=== PATIENT | male | born 1965 | race Hispanic/Latino ===

== ENCOUNTER 2017-09-17 18:39 | Inpatient (IN) | payer OTHER ==
[~2017-09-17] VITALS: Ht 175.3 cm; Wt 85.6 kg
[2017-09-17 18:59] LABS: APPEARANCE,URINE CLOUDY (CLEAR); BILIRUBIN,URINE MODERATE (NEGATIVE); COLOR,URINE RED (YELLOW); GLUCOSE, URINE (UA) >=1000 mg/dL (NEGATIVE); KETONES,URINE 5 mg/dL (NEGATIVE); LEUKOCYTE ESTERASE ,URINE LARGE (NEGATIVE); NITRATE,URINE POSITIVE (NEGATIVE); OCCULT BLOOD,URINE LARGE (NEGATIVE); PH,URINE 6.5 (5.0-8.0); PROTEIN,URINE >=300 (NEGATIVE)
[2017-09-17 19:09] LABS: BASOPHILS % (AUTO) 0.5 % (0.0-5.0); EOSINOPHILS % (AUTO) 0.7 % (0.0-8.0); HEMATOCRIT 43.4 % (42-54); LYMPHOCYTES % (AUTO) 7.7 % (21.0-51.0); MEAN CORPUSCULAR HEMOGLOBIN 30.9 pg (27.0-33.0); MEAN CORPUSCULAR HGB CONC 34.9 g/dL (32.0-36.0); MEAN CORPUSCULAR VOLUME 88.6 fL (79-99); MONOCYTES % (AUTO) 4.4 % (3.0-13.0); NEUTROPHILS % (AUTO) 86.7 % (40.0-77.0); PLATELET COUNT (AUTO) 245 K/uL (130-400); RED CELL DISTRIBUTION WIDTH 13.4 % (11.0-15.5); WHITE BLOOD COUNT (AUTO) 20.5 K/uL (4.8-10.8)
[2017-09-17 19:19] LABS: CREATININE 1.2 mg/dL (0.5-1.5); POTASSIUM 3.8 mmol/L (3.5-5.1)
[2017-09-17 19:20] LABS: RBC,URINE TNTC /HPF (0-1)
[2017-09-17 19:21] LABS: BACTERIA,URINE Rare /HPF (None Seen); SQUAMOUS EPITHELIAL CELL,UR Rare /HPF (0-2)
[2017-09-17] MEDS ORDERED: SODIUM CHLORIDE 0.9% 1000ML 1,000 ML IV ONE (19:21)
[2017-09-17] MEDS ORDERED: CEFTRIAXONE SODIUM 1 GM ONE (19:22)
[2017-09-17] MEDS ORDERED: ACETAMINOPHEN EXTRA STRENGTH 500 MG TABLET ONE (19:22)
[2017-09-17 19:24] LABS: ALBUMIN 3.9 g/dL (3.5-5.0); BILIRUBIN,TOTAL 0.6 mg/dL (0.2-1.0); TOTAL PROTEIN, SERUM 7.6 g/dL (6.0-8.3)
[2017-09-17] MEDS: SODIUM CHLORIDE 0.9% 1000ML 1,000 ML IV SCH (21:45)
[2017-09-17] MEDS ORDERED: LEVOFLOXACIN 500 MG/D5W 100 ML 100 ML ONE (21:53)
[2017-09-17] MEDS ORDERED: METFORMIN HCL 500 MG TABLET ONE (21:53)
[2017-09-17] MEDS ORDERED: LEVOFLOXACIN 500 MG/D5W 100 ML 100 ML IV SCH (22:00)
[2017-09-17] MEDS ORDERED: MAG HYDROX/AL HYDROX/SIMETH ES 30 ML SUSP UDCUP PO PRN (22:15)
[2017-09-17] MEDS ORDERED: GLUCAGON 1MG KIT 1 MG ML IM PRN (22:15)
[2017-09-17] MEDS ORDERED: ACETAMINOPHEN 325 MG TAB PO PRN ×2 (22:15)
[2017-09-17] MEDS ORDERED: POTASSIUM CHLORIDE 20 MEQ ERTAB PO PRN (22:15)
[2017-09-17] MEDS ORDERED: POTASSIUM CHLORIDE 20MEQ/100ML 100 ML IV PRN (22:15)
[2017-09-17] MEDS ORDERED: POTASSIUM CHLORIDE 10% ELIXIR 20 MEQ/15 ML UDCUP PO PRN (22:15)
[2017-09-17] MEDS ORDERED: DEXTROSE 50%-WATER 50 ML DISP.SYRIN IV PRN (22:15)
[2017-09-17] MEDS ORDERED: LIDOCAINE HCL-MPF 1% 2ML VIAL IVP PRN (22:15)
[2017-09-17] MEDS ORDERED: ONDANSETRON HCL MDV 20ML 2 MG/ML VIAL IV PRN (22:15)
[2017-09-17] MEDS ORDERED: LACTULOSE 20 GM/30 ML UDCUP PO PRN (22:15)
[2017-09-17] MEDS ORDERED: LOSA25TA21 PO (22:32)
[2017-09-17] MEDS ORDERED: GLIP5TAB11 PO (22:32)
[2017-09-17] MEDS ORDERED: ASPI-1181 PO (22:32)
[2017-09-17] MEDS ORDERED: FAMO20TA8 PO (22:32)
[2017-09-17] MEDS ORDERED: METF10004 PO (22:32)
[2017-09-17 22:35] VITALS: BP 137/86
[2017-09-17] MEDS: ACETAMINOPHEN 325 MG TAB PO PRN (23:03)
[2017-09-18 03:15] VITALS: BP 131/73
[2017-09-18 04:03] LABS: MEAN CORPUSCULAR HEMOGLOBIN 31.8 pg (27.0-33.0); MEAN CORPUSCULAR HGB CONC 35.4 g/dL (32.0-36.0); MEAN CORPUSCULAR VOLUME 89.9 fL (79-99); PLATELET COUNT (AUTO) 207 K/uL (130-400); RED BLOOD CELL COUNT(AUTO) 4.33 MIL/uL (4.50-6.20); RED CELL DISTRIBUTION WIDTH 13.5 % (11.0-15.5)
[2017-09-18 04:21] LABS: POTASSIUM 3.8 mmol/L (3.5-5.1)
[2017-09-18] MEDS: SODIUM CHLORIDE 0.9% 1000ML 1,000 ML IV SCH ×2 (04:25→12:58)
[2017-09-18] MEDS: INSULIN LISPRO 100 UNIT/ML 3ML SQ SCH ×4 (07:30→21:00)
[2017-09-18 08:00] VITALS: BP 126/76
[2017-09-18] MEDS ORDERED: GLIPIZIDE 5 MG TABLET PO SCH (08:00)
[2017-09-18] MEDS ORDERED: DIPHENOXYLATE HCL/ATROPINE 2.5/0.025 MG TAB PO PRN (09:30)
[2017-09-18] MEDS: METFORMIN HCL 500 MG TABLET PO SCH ×2 (09:43→16:41)
[2017-09-18] MEDS: PANTOPRAZOLE SODIUM 40 MG TABLET.DR PO SCH (09:48)
[2017-09-18] MEDS: LINAGLIPTIN 5 MG TABLET PO SCH (09:48)
[2017-09-18] MEDS: LOSARTAN 50 MG TABLET PO SCH (09:48)
[2017-09-18] MEDS: GLIPIZIDE 5 MG TABLET PO SCH ×2 (09:48→16:41)
[2017-09-18 11:36] VITALS: BP 122/78
[2017-09-18] MEDS: ZOSYN 3.375GM+NS 50ML 50 ML IV SCH ×2 (12:58→20:36)
[2017-09-18 16:00] VITALS: BP 126/75
[2017-09-18 20:00] VITALS: BP 131/75
[2017-09-18] MEDS: ACETAMINOPHEN 325 MG TAB PO PRN (20:36)
[2017-09-18 23:48] VITALS: BP 125/77
[2017-09-19 03:39] VITALS: BP 122/73
[2017-09-19] MEDS: ZOSYN 3.375GM+NS 50ML 50 ML IV SCH ×2 (04:16→13:06)
[2017-09-19 04:32] LABS: BASOPHILS % (AUTO) 0.4 % (0.0-5.0); EOSINOPHILS % (AUTO) 1.8 % (0.0-8.0); HEMATOCRIT 38.9 % (42-54); LYMPHOCYTES % (AUTO) 15.7 % (21.0-51.0); MEAN CORPUSCULAR HEMOGLOBIN 31.2 pg (27.0-33.0); MEAN CORPUSCULAR HGB CONC 34.7 g/dL (32.0-36.0); MEAN CORPUSCULAR VOLUME 89.7 fL (79-99); MONOCYTES % (AUTO) 6.1 % (3.0-13.0); PLATELET COUNT (AUTO) 198 K/uL (130-400); RED BLOOD CELL COUNT(AUTO) 4.34 MIL/uL (4.50-6.20); RED CELL DISTRIBUTION WIDTH 13.6 % (11.0-15.5); WHITE BLOOD COUNT (AUTO) 15.7 K/uL (4.8-10.8)
[2017-09-19 04:41] LABS: CREATININE 0.9 mg/dL (0.5-1.5); POTASSIUM 3.9 mmol/L (3.5-5.1)
[2017-09-19] MEDS: INSULIN LISPRO 100 UNIT/ML 3ML SQ SCH (06:13)
[2017-09-19 08:00] VITALS: BP 126/76
[2017-09-19] MEDS: GLIPIZIDE 5 MG TABLET PO SCH ×2 (09:46→17:04)
[2017-09-19] MEDS: PANTOPRAZOLE SODIUM 40 MG TABLET.DR PO SCH (09:47)
[2017-09-19] MEDS: LOSARTAN 50 MG TABLET PO SCH (09:47)
[2017-09-19] MEDS: METFORMIN HCL 500 MG TABLET PO SCH ×2 (09:47→17:04)
[2017-09-19] MEDS: LINAGLIPTIN 5 MG TABLET PO SCH (09:47)
[2017-09-19] MEDS ORDERED: GLIP10TA9 PO (10:59)
[2017-09-19] MEDS ORDERED: SITA100T12 PO (10:59)
[2017-09-19 11:21] VITALS: BP 127/77
[2017-09-19 16:00] VITALS: BP 133/76
[2017-09-19] MEDS ORDERED: LEVO500T2 PO (17:54)
== END 2017-09-19 18:53 | disposition home or self-care (01) | DRG 690 ==
LOC: EDH 18:39 → EDHIP 21:10 → 3BH 22:18
PROVIDERS: ADMIT Internal Medicine; ATTEND Internal Medicine
DX: N30.01 Acute cystitis with hematuria (principal); E11.21 Type 2 diabetes mellitus with diabetic nephropathy; E11.42 Type 2 diabetes mellitus with diabetic polyneuropathy; E11.65 Type 2 diabetes mellitus with hyperglycemia; E78.2 Mixed hyperlipidemia; K21.9 Gastro-esophageal reflux disease without esophagitis; K75.9 Inflammatory liver disease, unspecified; K76.0 Fatty (change of) liver, not elsewhere classified; M51.9 Unspecified thoracic, thoracolumbar and lumbosacral intervertebral disc disorder; Z79.82 Long term (current) use of aspirin; Z88.8 Allergy status to other drugs, medicaments and biological substances; Z82.49 Family history of ischemic heart disease and other diseases of the circulatory system; Z83.3 Family history of diabetes mellitus
CPT/HCPCS: 36415; 76705; 76770; 80048; 80053; 81001; 82948; 83605; 85025; 85027; 87040; 87088; 87186; J0696; J1956; J2543; J7030

== ENCOUNTER → 2018-01-29 | Outpatient (CLI) | payer OTHER ==
[~2018-01-29] MED LIST: ASPI-1181 PO; FAMO20TA8 PO; GLIP10TA9 PO; LEVO500T2 PO; LOSA25TA16 PO; METF-446 PO; SITA100T12 PO
== END | disposition home or self-care (01) ==
LOC: OIH 13:47
PROVIDERS: ATTEND Internal Medicine
DX: Z13.6 Encounter for screening for cardiovascular disorders (principal)
CPT/HCPCS: 75571

== ENCOUNTER 2018-01-30 08:43 | Emergency (ER) | payer OTHER ==
[2018-01-30 09:26] LABS: BASOPHILS % (AUTO) 0.5 % (0.0-5.0); EOSINOPHILS % (AUTO) 1.6 % (0.0-8.0); HEMATOCRIT 48.5 % (42-54); LYMPHOCYTES % (AUTO) 20.1 % (21.0-51.0); MEAN CORPUSCULAR HEMOGLOBIN 31.1 pg (27.0-33.0); MEAN CORPUSCULAR HGB CONC 34.3 g/dL (32.0-36.0); MEAN CORPUSCULAR VOLUME 90.8 fL (79-99); MONOCYTES % (AUTO) 4.9 % (3.0-13.0); NEUTROPHILS % (AUTO) 72.9 % (40.0-77.0); PLATELET COUNT (AUTO) 203 K/uL (130-400); RED BLOOD CELL COUNT(AUTO) 5.35 MIL/uL (4.50-6.20); RED CELL DISTRIBUTION WIDTH 13.5 % (11.0-15.5); WHITE BLOOD COUNT (AUTO) 8.4 K/uL (4.8-10.8)
[2018-01-30 09:34] LABS: CREATININE 1.1 mg/dL (0.5-1.5); POTASSIUM 4.3 mmol/L (3.5-5.1)
[2018-01-30 09:44] LABS: INR 1.02 (0.85-1.15); PARTIAL THROMBOPLASTIN TIME 25.8 SEC (26.3-35.5); PROTHROMBIN TIME 10.7 SEC (9.6-11.6)
[2018-01-30 09:49] LABS: ALBUMIN 3.9 g/dL (3.5-5.0); BILIRUBIN,TOTAL 0.6 mg/dL (0.2-1.0); TOTAL PROTEIN, SERUM 7.4 g/dL (6.0-8.3)
[2018-01-30] MEDS ORDERED: INSULIN HUMULIN R 100 UNIT/ML 3ML ONE (10:36)
== END 2018-01-30 10:54 | disposition home or self-care (01) ==
LOC: EDH 08:43
DX: I10 Essential (primary) hypertension (principal); R07.89 Other chest pain; R51 Headache; E11.9 Type 2 diabetes mellitus without complications; Z88.5 Allergy status to narcotic agent
CPT/HCPCS: 36415; 71045; 80053; 82550; 83874; 84484; 85025; 85610; 85730; 93005; 94761; 96374; 99285; J1815

== ENCOUNTER 2018-03-08 15:21 | Emergency (ER) | payer OTHER ==
[2018-03-08] MEDS ORDERED: ONDANSETRON HCL 4 MG/2 ML VIAL ONE (15:56)
[2018-03-08] MEDS ORDERED: SODIUM CHLORIDE 0.9% 1000ML 1,000 ML IV ONE (15:57)
== END 2018-03-08 17:02 | disposition home or self-care (01) ==
LOC: EDH 15:21
DX: S69.81XA Other specified injuries of right wrist, hand and finger(s), initial encounter (principal); E11.9 Type 2 diabetes mellitus without complications; I10 Essential (primary) hypertension; Z88.6 Allergy status to analgesic agent; Z98.890 Other specified postprocedural states; X58.XXXA Exposure to other specified factors, initial encounter; Y93.89 Activity, other specified; Y92.69 Other specified industrial and construction area as the place of occurrence of the external cause; Y99.8 Other external cause status
CPT/HCPCS: 73140; 99284; J2405; J7030

== ENCOUNTER 2019-01-21 10:34 | Emergency (ER) | payer OTHER ==
[~2019-01-21 10:34] MED LIST changes: -LOSA25TA16 PO; +LOSA25TA41 PO
[2019-01-21] MEDS ORDERED: MORPHINE SULFATE 4 MG/1ML SYG ONE (11:28)
[2019-01-21] MEDS ORDERED: ONDANSETRON HCL 4 MG/2 ML VIAL ONE (11:28)
[2019-01-21] MEDS ORDERED: SODIUM CHLORIDE 0.9% 1000ML 1,000 ML IV ONE (11:30)
== END 2019-01-21 13:00 | disposition home or self-care (01) ==
LOC: EDH 10:34
DX: T63.441A Toxic effect of venom of bees, accidental (unintentional), initial encounter (principal); I10 Essential (primary) hypertension; E11.9 Type 2 diabetes mellitus without complications; Z72.0 Tobacco use; Z88.5 Allergy status to narcotic agent; Y92.009 Unspecified place in unspecified non-institutional (private) residence as the place of occurrence of the external cause
CPT/HCPCS: 96374; 99284; J2270; J2405; J7030

== ENCOUNTER → 2023-12-23 | Outpatient (CLI) | payer BC ==
[~2023-12-23] MED LIST changes: -ASPI-1181 PO; +ASPI-1443 PO
== END | disposition home or self-care (01) ==
LOC: SHCH 14:56
PROVIDERS: ATTEND Internal Medicine Cardiovascular Disease
DX: I73.9 Peripheral vascular disease, unspecified (principal); I25.10 Atherosclerotic heart disease of native coronary artery without angina pectoris
CPT/HCPCS: 93306; 93925

== ENCOUNTER 2024-01-15 12:22 | Emergency (ER) | payer BC ==
[~2024-01-15] VITALS: Ht 175.3 cm; Wt 81.6 kg
[~2024-01-15 12:22] MED LIST changes: +AEC81 PO; +ALBU90AE IH; -ASPI-1443 PO; +DULA1.5P SQ; +EMPA25TA PO; +EZET-86 PO; -FAMO20TA8 PO; +FLUT9.9S NS; +LEVO-70 PO; -LEVO500T2 PO; +METO-408 PO; +OMEP40CA21 PO; +PRAS10TA9 PO; +ROSU10TA72 PO; -SITA100T12 PO
[2024-01-15 12:24] VITALS: TEMP 98.5
[2024-01-15 13:38] LABS: BASOPHILS # (AUTO) 0.05 K/uL (0.00-0.20); BASOPHILS % (AUTO) 0.6 % (0.0-5.0); EOSINOPHILS # (AUTO) 0.18 K/uL (0.00-0.70); EOSINOPHILS % (AUTO) 2.3 % (0.0-8.0); HEMATOCRIT 38.4 % (42-54); IMMATURE GRANULOCYTE ABSOLUTE 0.08 K/uL (0-1); LYMPHOCYTES # (AUTO) 1.3 K/uL (1.0-4.8); LYMPHOCYTES % (AUTO) 16.4 % (21.0-51.0); MEAN CORPUSCULAR HEMOGLOBIN 31.2 pg (27.0-33.0); MEAN CORPUSCULAR HGB CONC 34.9 g/dL (32.0-36.0); MEAN CORPUSCULAR VOLUME 89.3 fL (79-99); MONOCYTES # (AUTO) 0.6 K/uL (0.1-1.0); MONOCYTES % (AUTO) 7.6 % (3.0-13.0); NEUTROPHILS # (AUTO) 5.7 K/uL (1.8-7.7); NEUTROPHILS % (AUTO) 72.1 % (40.0-77.0); PLATELET COUNT (AUTO) 272 K/uL (130-400); RED CELL DISTRIBUTION WIDTH 12.5 % (11.0-15.5); WHITE BLOOD COUNT (AUTO) 7.9 K/uL (4.8-10.8)
[2024-01-15 13:47] LABS: CREATININE 1.1 mg/dL (0.5-1.3); POTASSIUM 3.7 mmol/L (3.5-5.1)
[2024-01-15 13:52] LABS: ALBUMIN 2.9 g/dL (3.5-5.0); BILIRUBIN,TOTAL 0.4 mg/dL (0.2-1.0); TOTAL PROTEIN, SERUM 7.2 g/dL (6.0-8.3)
[2024-01-15 14:00] VITALS: BP 151/70; PULSE 68; RESP 19; O2SAT 98
[2024-01-15] MEDS ORDERED: ACET-2079 PO (15:07)
[2024-01-15] MEDS ORDERED: GABA-529 PO (15:07)
== END 2024-01-15 15:38 | disposition home or self-care (01) ==
LOC: EDH 12:22
DX: I25.10 Atherosclerotic heart disease of native coronary artery without angina pectoris (principal); G44.099 Other trigeminal autonomic cephalgias (TAC), not intractable; E78.00 Pure hypercholesterolemia, unspecified; E11.40 Type 2 diabetes mellitus with diabetic neuropathy, unspecified; E11.59 Type 2 diabetes mellitus with other circulatory complications; I10 Essential (primary) hypertension; K21.9 Gastro-esophageal reflux disease without esophagitis; E66.9 Obesity, unspecified; Z68.30 Body mass index [BMI] 30.0-30.9, adult; Z88.5 Allergy status to narcotic agent; Z79.82 Long term (current) use of aspirin; Z79.84 Long term (current) use of oral hypoglycemic drugs; Z79.899 Other long term (current) drug therapy; Z98.61 Coronary angioplasty status
CPT/HCPCS: 36415; 70450; 71045; 80053; 85025; 93005

== ENCOUNTER 2024-03-09 13:28 | Emergency (ER) | payer BC ==
[~2024-03-09] VITALS: Ht 175.3 cm; Wt 78.0 kg
[~2024-03-09 13:28] MED LIST changes: +ACET-2079 PO; +GABA-529 PO; +GLIP10TA16 PO; -GLIP10TA9 PO; -METF-446 PO; -ROSU10TA72 PO
[2024-03-09 14:47] LABS: BASOPHILS # (AUTO) 0.05 K/uL (0.00-0.20); BASOPHILS % (AUTO) 0.5 % (0.0-5.0); EOSINOPHILS # (AUTO) 0.15 K/uL (0.00-0.70); EOSINOPHILS % (AUTO) 1.6 % (0.0-8.0); HEMATOCRIT 46.8 % (42-54); IMMATURE GRANULOCYTE ABSOLUTE 0.03 K/uL (0-1); LYMPHOCYTES # (AUTO) 2.2 K/uL (1.0-4.8); MEAN CORPUSCULAR HEMOGLOBIN 31.3 pg (27.0-33.0); MEAN CORPUSCULAR HGB CONC 33.8 g/dL (32.0-36.0); MEAN CORPUSCULAR VOLUME 92.9 fL (79-99); MONOCYTES # (AUTO) 0.4 K/uL (0.1-1.0); MONOCYTES % (AUTO) 4.7 % (3.0-13.0); NEUTROPHILS # (AUTO) 6.5 K/uL (1.8-7.7); NEUTROPHILS % (AUTO) 69.9 % (40.0-77.0); PLATELET COUNT (AUTO) 204 K/uL (130-400); RED BLOOD CELL COUNT(AUTO) 5.04 MIL/uL (4.50-6.20); RED CELL DISTRIBUTION WIDTH 12.8 % (11.0-15.5); WHITE BLOOD COUNT (AUTO) 9.3 K/uL (4.8-10.8)
[2024-03-09 15:13] LABS: CREATININE 1.1 mg/dL (0.5-1.3); POTASSIUM 3.7 mmol/L (3.5-5.1)
[2024-03-09 15:40] LABS: ADD UA MICROSCOPIC YES; APPEARANCE,URINE CLEAR (CLEAR); BILIRUBIN,URINE NEGATIVE (NEGATIVE); COLOR,URINE COLORLESS (YELLOW); GLUCOSE, URINE (UA) >=1000 mg/dL (NEGATIVE); KETONES,URINE NEGATIVE (NEGATIVE); LEUKOCYTE ESTERASE ,URINE NEGATIVE Leu/uL (NEGATIVE); NITRATE,URINE NEGATIVE (NEGATIVE); OCCULT BLOOD,URINE NEGATIVE (NEGATIVE); PH,URINE 5.5 (5.0-8.0); PROTEIN,URINE NEGATIVE (NEGATIVE); UROBILINOGEN,URINE 0.2 mg/dL (0.2-1.0)
[2024-03-09 15:44] LABS: WBC,URINE 0-1 /HPF (0-1)
[2024-03-09] MEDS ORDERED: CARB100T61 PO (17:11)
[2024-03-09 17:24] VITALS: BP 131/71; PULSE 65; RESP 20; TEMP 97; O2SAT 97
== END 2024-03-09 17:30 | disposition home or self-care (01) ==
LOC: EDH 13:28
DX: G50.0 Trigeminal neuralgia (principal); E11.9 Type 2 diabetes mellitus without complications; E78.00 Pure hypercholesterolemia, unspecified; I25.10 Atherosclerotic heart disease of native coronary artery without angina pectoris; Z79.02 Long term (current) use of antithrombotics/antiplatelets; Z79.82 Long term (current) use of aspirin; Z79.84 Long term (current) use of oral hypoglycemic drugs; Z79.899 Other long term (current) drug therapy; Z88.5 Allergy status to narcotic agent; Z95.5 Presence of coronary angioplasty implant and graft
CPT/HCPCS: 36415; 70551; 71045; 80048; 81001; 85025; 93005

== ENCOUNTER → 2024-04-22 | Outpatient (CLI) | payer BC ==
[~2024-04-22] MED LIST changes: +CARB100T61 PO
--- NOTE | 2024-04-22 16:46 | HMCIMG ---
US SCROTUM & CONTENTS REASON: TESTICULAR PAIN COMPARISON: None TECHNIQUE: Routine scrotal sonogram was performed. Vascular Doppler evaluation was performed with spectral analysis and color flow imaging. FINDINGS: Right testicle is 4.5 x 2.0 x 2.5 cm, left 4.4 x 1.9 x 2.6 cm. There is homogeneous appearing parenchyma with normal and symmetrical appearing blood flow. There are no focal masses. There is a 2 mm epididymal head cyst on the right, the right epididymis appears otherwise normal. Left epididymis is unremarkable. There is a left-sided varicocele, largest vein on Valsalva is 7 mm. Exam is otherwise unremarkable. IMPRESSION: 1. Left-sided varicocele, largest vein on Valsalva is 7 mm. 2. Otherwise unremarkable bilateral scrotal sonogram with color-flow Doppler vascular evaluation.
--- NOTE | 2024-04-22 16:48 | HMCIMG ---
US SOFT TISSUE NECK REASON: EDEMA COMPARISON: None TECHNIQUE: Ultrasound was performed of the area in question left lateral neck. FINDINGS: Ultrasound shows a prominent lymph node measuring 4 x 10 x 14 mm. This has a normal-appearing fatty replaced hilum. There are no other enlarged lymph nodes. There are no focal fluid collections or masses. IMPRESSION: 1. Mildly enlarged lymph node left lateral neck corresponding with the area in question, 1.4 cm.
--- NOTE | 2024-04-22 16:48 | HMCIMG ---
US RENAL SONOGRAM REASON: HEMATURIA COMPARISON: None TECHNIQUE: Renal and bladder sonogram was performed. FINDINGS: Right kidney is 11.3 x 5.5 x 5.1 cm, left 12.2 x 5.3 x 5.2 cm. There is no mass, stone or hydronephrosis. Cortical thickness appears preserved. Urinary bladder appears unremarkable. Prostate size appears normal, volume 8 cc. Prevoid bladder volume is 334 cm. Postvoid volume is 25 cc. IMPRESSION: 1. Small postvoid residual, the exam is otherwise negative.
== END | disposition home or self-care (01) ==
LOC: RAH 14:32
PROVIDERS: ATTEND Internal Medicine
DX: I86.1 Scrotal varices (principal); R31.29 Other microscopic hematuria; N50.819 Testicular pain, unspecified; R60.9 Edema, unspecified; N45.1 Epididymitis
CPT/HCPCS: 76536; 76770; 76870

== ENCOUNTER → 2024-05-12 | Outpatient (CLI) | payer BC | END | disposition home or self-care (01) | LOC: RAH 13:20 | PROVIDERS: ATTEND Internal Medicine | DX: R59.0 Localized enlarged lymph nodes (principal); Z72.0 Tobacco use ==

== ENCOUNTER → 2024-08-03 | Outpatient (CLI) | payer BC ==
--- NOTE | 2024-08-03 16:40 | HMCIMG ---
MRI LUMBAR SPINE WITHOUT CONTRAST INDICATION: Radiculopathy lumbar area. Pain after fall 2 weeks ago COMPARISON: None PARAMETERS: Long and short axis fat and water weighted sequences were obtained through the lumbar spine. FINDINGS: Normal lordosis of the lumbar spine is maintained. The lumbar vertebral bodies are normal in height, without evidence for acute compression fracture or osseous marrow replacing process. The conus medullaris is normal in signal and terminates at the appropriate level. T12-L1: No significant disc displacement, neuroforaminal narrowing, or central canal stenosis. No significant facet disease identified. L1-L2: No significant disc displacement, neuroforaminal narrowing, or central canal stenosis. No significant facet disease identified. L2-L3: No significant disc displacement, neuroforaminal narrowing, or central canal stenosis. No significant facet disease identified. L3-L4: No significant disc displacement, neuroforaminal narrowing, or central canal stenosis. No significant facet disease identified. L4-L5: Extremely shallow posterior disc disc space and without any significant neuroforaminal narrowing or central canal stenosis. No significant facet disease. L5-S1: Extreme the shallow posterior disc displacement without any significant neuroforaminal narrowing or central canal stenosis. Nominal bilateral facet disease. 7 mm along posterior concentric intraannular fissure or less likely, rent. No evidence for discitis. Multilevel nominal anterior endplate osteophytic spurring. The pre- and paraspinous soft tissues appear unremarkable. ANCILLARY FINDINGS: None. IMPRESSION: No significant disc herniation, neuroforaminal narrowing, or central canal stenosis. Level by level analysis, additional minor degenerative changes, and pertinent negatives as reported.
== END | disposition home or self-care (01) ==
LOC: RAH 14:21
PROVIDERS: ATTEND Internal Medicine
DX: M51.17 Intervertebral disc disorders with radiculopathy, lumbosacral region (principal); M25.78 Osteophyte, vertebrae; M47.26 Other spondylosis with radiculopathy, lumbar region
CPT/HCPCS: 72148

== ENCOUNTER 2024-09-12 13:38 | Emergency (ER) | payer BC ==
[~2024-09-12] VITALS: Ht 175.3 cm; Wt 84.8 kg
--- NOTE | 2024-09-12 13:45 | NUR ---
CODE STROKE DOWNGRADED BY DR. BERUMEN AT THIS TIME.
[2024-09-12] MEDS: ketOROlac 15MG/ML VIAL (15MG/ML) IV ONE (14:21)
--- NOTE | 2024-09-12 14:42 | HMCIMG ---
Exam Type: CHEST 1VW Clinical Information: chest pain Comparison: None Findings: The lungs are clear of infiltrates. The heart is normal in size. The bony and soft tissue structures of the chest are unremarkable. Impression: Clear lungs.
[2024-09-12 14:43] LABS: CARBON DIOXIDE 26 mmol/L (21-32); CHLORIDE 103 mmol/L (101-111); CREATININE 1.1 mg/dL (0.5-1.3); GLOMERULAR FILTR. RATE CALC 79 mL/min (>90); GLUCOSE,RANDOM 161 mg/dL (70-105); POTASSIUM 4.4 mmol/L (3.5-5.1); SODIUM SERUM 139 mmol/L (136-145); UREA NITROGEN, BLOOD 23 mg/dL (7-18)
[2024-09-12 14:44] LABS: BASOPHILS # (AUTO) 0.06 K/uL (0.00-0.20); BASOPHILS % (AUTO) 0.5 % (0.0-5.0); EOSINOPHILS # (AUTO) 0.13 K/uL (0.00-0.70); EOSINOPHILS % (AUTO) 1.1 % (0.0-8.0); HEMATOCRIT 47.8 % (42-54); IMMATURE GRANULOCYTE ABSOLUTE 0.04 K/uL (0-1); LYMPHOCYTES # (AUTO) 1.7 K/uL (1.0-4.8); MEAN CORPUSCULAR HEMOGLOBIN 31.4 pg (27.0-33.0); MEAN CORPUSCULAR HGB CONC 34.3 g/dL (32.0-36.0); MEAN CORPUSCULAR VOLUME 91.6 fL (79-99); MONOCYTES # (AUTO) 0.7 K/uL (0.1-1.0); MONOCYTES % (AUTO) 5.4 % (3.0-13.0); NEUTROPHILS # (AUTO) 9.5 K/uL (1.8-7.7); NEUTROPHILS % (AUTO) 78.7 % (40.0-77.0); PLATELET COUNT (AUTO) 251 K/uL (130-400); RED BLOOD CELL COUNT(AUTO) 5.22 MIL/uL (4.50-6.20); RED CELL DISTRIBUTION WIDTH 12.3 % (11.0-15.5)
--- NOTE | 2024-09-12 14:49 | ERN ---
General Chief Complaint: Numbness Stated Complaint: RT ARM NUMBNESS Time Seen by MD: 13:42 History of Present Illness Initial Comments 58-year-old male who presents for right back pain and some tingling to his right arm. Patient reports he woke up with symptoms around 9:00 a.m. this morning. Patient reports pain to the medial scapula area in the right side. He reports some tingling to his arm without any weakness or motor dysfunction. He denies any headache vision changes or any other neurologic symptoms. He denies any viraj chest pain or shoulder pain. 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 He does report certain positions make the pain worse. He also reports deep respiration makes the pain worse. No cough or congestion or systemic illness. Allergies: Coded Allergies: morphine (Verified Allergy, Unknown, 09/17/17) Home Meds Active Scripts Meloxicam (Meloxicam) 15 Mg Tablet, 15 MG PO DAILY PRN for PAIN for 10 Days, #10 TAB Prov:MAURISIO BERUMEN DO 09/12/24 Carbamazepine (Carbamazepine ER) 100 Mg Tab.er.12h, 1 TAB PO BID for 30 Days, #120 TAB 0 Refills Prov:MAURISIO BERUMEN DO 03/09/24 Acetaminophen with Codeine (Acetaminophen-Cod #3 Tablet) 300 Mg-30 Mg Tablet, 1 EACH PO TID for headache, #15 TAB Prov:CHRISTINA MA MD 01/15/24 Gabapentin (Gabapentin) 100 Mg Capsule, 100 MG PO TID, #60 CAP Prov:CHRISTINA MA MD 01/15/24 Empagliflozin (Jardiance) 25 Mg Tablet, 25 MG PO DAILY, #90 TAB 1 Refill Prov:CLARK JOAQUIN MD 01/15/24 Levofloxacin (Levofloxacin) 500 Mg Tablet, 500 MG PO DAILY, #5 TAB 0 Refills Prov:CLARK JOAQUIN MD 01/15/24 Metoprolol Succinate (Metoprolol Succinate) 25 Mg Tab.er.24h, 25 MG PO DAILY for 30 Days, #30 TAB 0 Refills Prov:KEANU PINEDA MD 01/15/24 Prasugrel HCl (Prasugrel HCl) 10 Mg Tablet, 10 MG PO DAILY, #90 TAB 3 Refills Prov:KEANU PINEDA MD 01/15/24 Ezetimibe/Rosuvastatin Calcium (Rosuvastatin-Ezetimibe 10-10Mg) 10 Mg-10 Mg Tablet, 1 EACH PO DAILY, #90 TAB 3 Refills Prov:KEANU PINEDA MD 01/15/24 Fluticasone Propionate (Flonase Allergy Relief) 50 Mcg/Actuation [place].susp, 1 SPRAY NS BID PRN for ALLEGIES, #7 ML Prov:CLARK JOAQUIN MD 01/12/24 Albuterol Sulfate (Proair Respiclick) 90 Mcg Aer.pow.ba, 2 PUFF IH Q6HPRN PRN for SHORTNESS OF BREATH/WHEEZING, #90 EA Prov:CLARK JOAQUIN MD 01/12/24 Omeprazole (Omeprazole) 40 Mg Capsule.dr, 40 MG PO DAILY PRN for HEARTBURN, #90 CAP Prov:CLARK JOAQUIN MD 01/12/24 Dulaglutide (Trulicity) 1.5 Mg/0.5 Ml Pen.injctr, 1.5 MG SQ QWEEK for 90 Days, #4 ML Prov:CLARK JOAQUIN MD 01/12/24 Reported Medications Losartan Potassium (Losartan Potassium) 25 Mg Tablet, 25 MG PO DAILY, TAB 01/11/24 Glipizide (Glipizide) 10 Mg Tablet, 10 MG PO BID, TAB 01/11/24 Aspirin (ASPIRIN 81 MG ECTAB) 81 Mg Ectab, 81 MG PO DAILY, TAB.EC 01/11/24 Past Medical History Past Medical History: CAD, Diabetes-Type II, High Cholesterol, Heart Disease, Hypertension, Stroke Past Surgical History: None Surgical History Other: HEART CATH ROS Dictation CONSTITUTIONAL: No chills, no fever, no weakness, no diaphoresis, no malaise. HEAD/FACE: No signs of trauma. EENT: No eye pain, no blurred vision, no tearing, no double vision, no ear pain, no ear discharge, no nose pain, no nasal congestion, no throat pain, no throat swelling, no mouth pain. RESPIRATORY: No cough, no orthopnea, no SOB, no stridor, no wheezing. CARDIOVASCULAR: No chest pain, no edema, no palpitations, no syncope. GASTROINTESTINAL/ABDOMINAL: No abdominal pain, no constipation, no diarrhea, no nausea, no vomiting. GENITOURINARY: No abnormal discharge, no dysuria, no frequent urination, no hematuria. No complaints of pain in the genitals. MUSCULOSKELETAL: Back pain INTEGUMENTARY: No change in color, no change in hair/nails, no dryness, no lesion, no lumps, no rash. NEUROLOGICAL/PSYCH: No anxiety, not depressed, no emotional problem, no headache, no numbness, no pre-existing deficit, no history of seizures, no tremors, no weakness. HEMATOLOGIC/LYMPHATIC: Not anemic, no history of blood clots, no apparent bleeding, no bruising, glands not swollen. All Systems Negative, Except as Noted. Physical Exam Physical Exam Dictation VITAL SIGNS: Reviewed. GENERAL APPEARANCE: Alert, oriented x3 HEAD AND FACE: Non-traumatic. EYES: PERRL, pink conjunctivas, eyelid no trauma, anterior chamber clear. EARS: Pinnas intact and no signs of trauma or erythema. Ear canals clear and no discharge. TMs no erythema. NOSE: No discharge, no bleeding. OROPHARYNX: Mouth normal, teeth no caries, tongue pink. Pharynx clear, no erythema. Tonsils no exudates, no abscesses noted. Mucous membrane moist. NECK: Supple, non-tender, no thyromegaly, no masses, no JVD, no bruits. BREAST: Deferred. CHEST: No tenderness, no crepitus, no paradoxical movement, no retractions. LUNGS: Clear, well-ventilated, symmetric, no rales, no wheezing, no rhonchi, no stridor, good breath sounds bilaterally. HEART: Regular rate, regular rhythm, no murmur, no gallops. VASCULAR: No peripheral edema. ABDOMEN: Soft, positive bowel sounds, nondistended, no guarding, nontender, no rebound, no masses no hepatomegaly, no splenomegaly, no Moser's sign, no hernias. RECTAL: Deferred. GENITAL: Deferred. NEUROLOGICAL: Normal speech, gross motor function intact, gross sensory function intact. MUSCULOSKELETAL: Neck nontender, full range of motion, back nontender, full range of motion. EXTREMITIES: Nontender, full range of motion. SKIN: Color pink, dry, no turgor, no rash, no lacerations, no abrasions, no contusions. LYMPHATICS: Deferred. Results Laboratory and Microbiology Lab and Micro Result Laboratory Tests Test 09/12/24 13:43 09/12/24 14:20 09/12/24 15:28 Whole Blood Glucose 161 MG/DL (70-110) H White Blood Count 12.0 K/uL (4.8-10.8) H Red Blood Count 5.22 MIL/uL (4.50-6.20) Hemoglobin 16.4 g/dL (14.0-18.0) Hematocrit 47.8 % (42-54) Mean Corpuscular Volume 91.6 fL (79-99) Mean Corpuscular Hemoglobin 31.4 pg (27.0-33.0) Mean Corpuscular Hemoglobin Concent 34.3 g/dL (32.0-36.0) Red Cell Distribution Width 12.3 % (11.0-15.5) Platelet Count 251 K/uL (130-400) Mean Platelet Volume 9.4 fL (7.5-10.5) Immature Granulocyte % (Auto) 0.3 % (0-1) Neutrophils (%) (Auto) 78.7 % (40.0-77.0) H Lymphocytes (%) (Auto) 14.0 % (21.0-51.0) L Monocytes (%) (Auto) 5.4 % (3.0-13.0) Eosinophils (%) (Auto) 1.1 % (0.0-8.0) Basophils (%) (Auto) 0.5 % (0.0-5.0) Neutrophils # (Auto) 9.5 K/uL (1.8-7.7) H Lymphocytes # (Auto) 1.7 K/uL (1.0-4.8) Monocytes # (Auto) 0.7 K/uL (0.1-1.0) Eosinophils # (Auto) 0.13 K/uL (0.00-0.70) Basophils # (Auto) 0.06 K/uL (0.00-0.20) Absolute Immature Granulocyte (auto 0.04 K/uL (0-1) Nucleated Red Blood Cells 0.0 % (0.0-0.19) D-Dimer Quantitative (PE/DVT) 214 ng/mL (0-500) Sodium Level 139 mmol/L (136-145) Potassium Level 4.4 mmol/L (3.5-5.1) Chloride Level 103 mmol/L (101-111) Carbon Dioxide Level 26 mmol/L (21-32) Blood Urea Nitrogen 23 mg/dL (7-18) H Creatinine 1.1 mg/dL (0.5-1.3) Glomerular Filtration Rate Calc 79 mL/min (>90) Random Glucose 161 mg/dL (70-105) H Total Calcium 8.6 mg/dL (8.5-10.1) Total Creatine Kinase 69 U/L (21-232) Troponin I High Sensitivity < 4.0 ng/L (4-75) L 5 ng/L (4-75) B-Type Natriuretic Peptide < 5 pg/mL (0-100) MDM CC: Right sided back pain medial to the scapula, tingling in his arm on the right Historian: Patient Comorbidities: CAD, diabetes, dyslipidemia, hypertension, history of TIA Limitations by social determinants of health: None Differential diagnosis: Stroke, ACS, musculoskeletal pain, PE, other Vital signs: Stable, remained stable here in the ER. On initial exam patient has not NIHSS of 0. He was describing a tingling sensation, no numbness, on clinical exam it appears to be radicular in nature. He was pain and tenderness to the rhomboid area near his right scapula. Increases with movement and palpation. It appears to be musculoskeletal in nature. No signs of stroke at this time. Patient was initially come back has a stroke alert from triage, but downgraded. No signs of stroke. He was no chest pain. No signs of cardiac disease in his time. CXR (independently interpreted by me ): No cardiomegaly pleural effusions or focal infiltrates. Labs (independently ordered and interpreted by me ): Leukocytosis 12 K, left shift 78% neutrophils. No bands. D-dimer negative. BMP stable. Troponin x2 normal. BNP normal. Treatment in ED: Toradol IV. Based on the patient's clinical presentation he has a musculoskeletal type back pain. Two normal troponins. Stable vital signs. Normal chest x-ray. Otherwise unremarkable workup. It appears to be musculoskeletal back pain. Plan: We will DC with meloxicam recommend PCP follow up. ED Course Orders Procedure Category Date Status Time Chest 1vw RAD 09/12/24 Resulted 13:58 Cardiac Panel LAB 09/12/24 Complete 13:58 Cbc With Differential LAB 09/12/24 Complete 13:58 Basic Metabolic Panel LAB 09/12/24 Complete 13:58 B-Type Natriuretic LAB 09/12/24 Complete Peptide 13:58 D-Dimer LAB 09/12/24 Complete 13:58 Ketorolac PHA 09/12/24 Complete Tromethamine 15mg/Ml 14:00 Troponin I High LAB 09/12/24 Complete Sensitivity 15:14 12 Lead Ekg Tracing- EKG 09/12/24 Logged Technical 16:46 Current Medications Medications (Trade) Dose Ordered Sig/Shanti Route PRN Reason Start Time Stop Time Status Last Admin Dose Admin Ketorolac Tromethamine (toRADol) 15 mg ONCE ONCE IV 09/12/24 14:00 09/12/24 14:02 DC 09/12/24 14:21 Vital Signs Date Time Temp Pulse Resp B/P (MAP) Pulse Ox O2 Delivery O2 Flow Rate FiO2 09/12/24 17:37 98.2 68 19 149/76 99 Room Air* 0 21 09/12/24 14:25 98.8 73 21 126/77 98 Room Air* 0 21 09/12/24 13:45 98.2 78 16 142/77 99 Room Air 0 DX & DISP Disposition: Discharge Departure Impression: Primary Impression: Musculoskeletal back pain Condition: Stable Scripts Meloxicam (Meloxicam) 15 Mg Tablet 15 MG PO DAILY PRN for PAIN for 10 Days, #10 TAB Prov: MAURISIO BERUMEN DO 09/12/24 Additional Instructions: As we discussed, your symptoms are most consistent with a musculoskeletal type pain. There are no signs of vascular or cardiac disease at this time. Your vital signs have been stable here in the ER. Your blood work ( CBC, D-dimer, metabolic panel, CK, troponin x2, BNP) is unremarkable. Your chest x-ray is unremarkable. I have prescribed meloxicam, which is an anti-inflammatory pain medication you can take this once per day for the next week or so for your pain. You can also take [id number] Tylenol, use eupn-laf-xihqunh lidocaine patches or capsaicin cream, or any other xpld-jfq-veccobi pain medications. If you have any concerning symptoms please return to the emergency department. Otherwise, you can follow up with the primary doctor as an outpatient. Referrals: CLARK JOAQUIN MD (PCP) MAURISIO BERUMEN DO September 12, 2024 14:49
[2024-09-12 14:51] LABS: CREATINE KINASE, TOTAL 69 U/L (21-232)
[2024-09-12 15:06] LABS: B-TYPE NATRIURETIC PEPTIDE < 5 pg/mL (0-100)
[2024-09-12] MEDS ORDERED: MELO-108 PO (16:43)
--- NOTE | 2024-09-12 17:20 | NUR ---
REFUSED EKG AT THIS TIME
[2024-09-12 17:37] VITALS: BP 149/76; PULSE 68; RESP 19; TEMP 98.2; O2SAT 99
--- NOTE | 2024-09-12 17:37 | NUR ---
PATIENT REFUSED EKG I DC'D PATIENT PER DR. BERUMEN, I DC'D IV WITH CATH STILL IN PLACE AND APPLIED 2X2 GAUZE WITH COBAN I EXPLAINED TO PATIENT TO FOLLOW UP WITH PCP AND TAKE PRESCRIPTIONS DIRECTED PATIENT AMBULATED OUT OF ED, NO COMPLICATIONS
== END 2024-09-12 17:40 | disposition home or self-care (01) ==
LOC: EDH 13:38
DX: M54.9 Dorsalgia, unspecified (principal); I25.10 Atherosclerotic heart disease of native coronary artery without angina pectoris; E11.9 Type 2 diabetes mellitus without complications; E78.00 Pure hypercholesterolemia, unspecified; I10 Essential (primary) hypertension; Z79.02 Long term (current) use of antithrombotics/antiplatelets; Z79.82 Long term (current) use of aspirin; Z79.84 Long term (current) use of oral hypoglycemic drugs; Z79.899 Other long term (current) drug therapy; Z86.73 Personal history of transient ischemic attack (TIA), and cerebral infarction without residual deficits; Z88.5 Allergy status to narcotic agent
CPT/HCPCS: 99284; 96374; 71045; 82550; 84484 ×2; 80048; 83880; 85025; 85378; 82948; 36415; J1885

== ENCOUNTER → 2024-10-12 | Outpatient (CLI) | payer BC ==
[~2024-10-12] MED LIST changes: +MELO-108 PO
--- NOTE | 2024-10-12 17:10 | HMCIMG ---
KNEE 3VWS LT REASON: PAIN AND SWELLING OF LEFT KNEE TECHNIQUE: 2 views were obtained. FINDINGS: There is no evidence of fracture or dislocation. There is no joint effusion. The soft tissues appear unremarkable. There is no evidence of a radiopaque foreign body. IMPRESSION: No acute findings.
== END | disposition home or self-care (01) ==
LOC: RAH 16:04
PROVIDERS: ATTEND Internal Medicine
DX: M25.562 Pain in left knee (principal)
CPT/HCPCS: 73562

== ENCOUNTER 2024-12-21 18:43 | Emergency (ER) | payer BC ==
[~2024-12-21] VITALS: Ht 175.3 cm; Wt 80.7 kg
[~2024-12-21 18:43] MED LIST changes: +LIDO1ADH6 TP
[2024-12-21 19:12] LABS: RAPID GROUP A STREP negative (NEGATIVE)
--- NOTE | 2024-12-21 19:13 | ERN ---
ED Note History of Present Illness Stated Complaint: SORE THROAT, COUGH Chief Complaint: Sore Throat Time Seen by MD: 18:45 Time Seen by Midlevel: 18:45 Dictation: 59-YEAR-OLD MALE WHO PRESENTS ED FOR EVALUATION OF FLU-LIKE SYMPTOMS INCLUDING COUGH, CONGESTION, SORE THROAT, BODY ACHES, CHILLS. DENIES FEVER, CHEST PAIN, SHORTNESS OF BREATH, ABDOMINAL PAIN, NAUSEA, VOMITING, DIARRHEA. NO SICK CONTACTS AT HOME Allergies: Coded Allergies: morphine (Verified Allergy, Unknown, 09/17/17) Home Meds Active Scripts Lidocain/Me-Salicyl/Caps/Menth (Medi-Patch with Lidocaine) 0.5 %-20 %-0.035 %-5 % Adh..patch, 1 EACH TP DAILY for 5 Days, #5 ADH.PATCH Prov:JEOVANNY IYER 10/16/24 Meloxicam (Meloxicam) 15 Mg Tablet, 15 MG PO DAILY PRN for PAIN for 10 Days, #10 TAB Prov:MAURISIO BERUMEN DO 09/12/24 Carbamazepine (Carbamazepine ER) 100 Mg Tab.er.12h, 1 TAB PO BID for 30 Days, #120 TAB 0 Refills Prov:MAURISIO BERUMEN DO 03/09/24 Acetaminophen with Codeine (Acetaminophen-Cod #3 Tablet) 300 Mg-30 Mg Tablet, 1 EACH PO TID for headache, #15 TAB Prov:CHRISTINA MA MD 01/15/24 Gabapentin (Gabapentin) 100 Mg Capsule, 100 MG PO TID, #60 CAP Prov:CHRISTINA MA MD 01/15/24 Empagliflozin (Jardiance) 25 Mg Tablet, 25 MG PO DAILY, #90 TAB 1 Refill Prov:CLARK JOAQUIN MD 01/15/24 Levofloxacin (Levofloxacin) 500 Mg Tablet, 500 MG PO DAILY, #5 TAB 0 Refills Prov:CLARK JOAQUIN MD 01/15/24 Metoprolol Succinate (Metoprolol Succinate) 25 Mg Tab.er.24h, 25 MG PO DAILY for 30 Days, #30 TAB 0 Refills Prov:KEANU PINEDA MD 01/15/24 Prasugrel HCl (Prasugrel HCl) 10 Mg Tablet, 10 MG PO DAILY, #90 TAB 3 Refills Prov:KEANU PINEDA MD 01/15/24 Ezetimibe/Rosuvastatin Calcium (Rosuvastatin-Ezetimibe 10-10Mg) 10 Mg-10 Mg Tablet, 1 EACH PO DAILY, #90 TAB 3 Refills Prov:KEANU PINEDA MD 01/15/24 Fluticasone Propionate (Flonase Allergy Relief) 50 Mcg/Actuation [place].susp, 1 SPRAY NS BID PRN for ALLEGIES, #7 ML Prov:CLARK JOAQUIN MD 01/12/24 Albuterol Sulfate (Proair Respiclick) 90 Mcg Aer.pow.ba, 2 PUFF IH Q6HPRN PRN for SHORTNESS OF BREATH/WHEEZING, #90 EA Prov:CLARK JOAQUIN MD 01/12/24 Omeprazole (Omeprazole) 40 Mg Capsule.dr, 40 MG PO DAILY PRN for HEARTBURN, #90 CAP Prov:CLARK JOAQUIN MD 01/12/24 Dulaglutide (Trulicity) 1.5 Mg/0.5 Ml Pen.injctr, 1.5 MG SQ QWEEK for 90 Days, #4 ML Prov:CLARK JOAQUIN MD 01/12/24 Reported Medications Losartan Potassium (Losartan Potassium) 25 Mg Tablet, 25 MG PO DAILY, TAB 01/11/24 Glipizide (Glipizide) 10 Mg Tablet, 10 MG PO BID, TAB 01/11/24 Aspirin (ASPIRIN 81 MG ECTAB) 81 Mg Ectab, 81 MG PO DAILY, TAB.EC 01/11/24 Past Medical History Past Medical History: CAD, Diabetes-Type II, High Cholesterol, Heart Disease, Hypertension, AL, Stroke Additional Past Medical Hx: CARDIAC STENTS ON ANTICOAGULANTS Surgical History: None Surgical History Other: CARDIAC CATHETERIZATION RN Note Reviewed/Agreed w/PFSH: Yes Review of System Dictation CONSTITUTIONAL: NEGATIVE FOR FEVER,CHILLS, AND WEIGHT LOSS EYES: NEGATIVE FOR INJURY, PAIN,REDNESS, AND DISCHARGE ENT: NEGATIVE FOR INJURY,PAIN OR SWELLING CARDIOVASCULAR: NEGATIVE FOR CHEST PAIN, PALPITATIONS, AND EDEMA RESPIRATORY: NEGATIVE FOR SHORTNESS OF BREATH AND WHEEZING, ABDOMEN/GI: NEGATIVE FOR ABDOMINAL PAIN, NAUSEA, VOMITING, DIARRHEA, AND CONSTIPATION BACK: NEGATIVE FOR INJURY AND PAIN : NEGATIVE FOR INJURY, BLEEDING AND DISCHARGE MS/EXTREMITY: NEGATIVE FOR INJURY AND DEFORMITY SKIN: NEGATIVE FOR RASH, AND DISCOLORATION NEURO: NEGATIVE FOR HEADACHE, WEAKNESS, NUMBNESS, TINGLING, AND SEIZURE PSYCH: NEGATIVE FOR SUICIDE IDEATION, HOMICIDAL IDEATION, AND HALLUCINATIONS Review of Systems: was completed Initial Vital Sign VS Vital Signs Date Time Temp Pulse Resp B/P (MAP) Pulse Ox O2 Delivery O2 Flow Rate FiO2 12/21/24 18:45 98.8 85 16 135/73 99 Room Air 12/21/24 19:20 0 21 Physical Exam Dictation GENERAL: AWAKE, ALERT, NAD HEAD/FACE: NORMOCEPHALIC, ATRAUMATIC EYES: PERRL, EOMI, VISION AT BASELINE ENT: ORAL CAVITY CLEAR, TMS CLEAR, NO SIGNS OF INFECTION NECK: TRACHEA MIDLINE, SUPPLE, NO NUCHAL RIGIDITY CARDIOVASCULAR: RRR, NORMAL S1/S2, NO MRGS, NO JVD RESPIRATORY: CTAB, NO RESPIRATORY DISTRESS, NO RALES OR WHEEZES ABDOMEN: SOFT, NON-TENDER, NON-DISTENDED, NORMAL BOWEL SOUNDS, NO GUARDING OR REBOUND. SKIN: WARM, DRY, NORMAL TURGOR, NO RASH MS/EXTREMITY: PULSES EQUAL, NO CYANOSIS, NEUROVASCULAR INTACT, FROM NEURO: COAX4, GCS 15, STRENGTH 5/5, CN 2-12 INTACT, NORMAL CEREBELLAR EXAM, NORMAL GAIT, PSYCH: NORMAL BEHAVIOR, MOOD, AND AFFECT NORMAL Results (Laboratory/Radiology) Laboratory/Radiology Laboratory Tests Test 12/21/24 18:49 Influenza Type A Antigen Negative For Type A Influenza Type B Antigen Negative For Type B SARS-CoV-2 Antigen (Rapid) PRESUMPTIVE NEGATIVE Group A Streptococcus Rapid negative (NEGATIVE) Labs Reviewed?: Yes ED Course ED Course Orders Procedure Category Date Status Time Covid19 (Sars Antigen LAB 12/21/24 Complete Rapid) 18:55 Influenza Type A & B, LAB 12/21/24 Complete Rapid 18:55 Rapid (Group A Strep) LAB 12/21/24 Complete 18:55 Vital Signs Date Time Temp Pulse Resp B/P (MAP) Pulse Ox O2 Delivery O2 Flow Rate FiO2 12/21/24 19:20 98.2 82 16 135/70 98 Room Air* 0 21 12/21/24 18:45 98.8 85 16 135/73 99 Room Air Medical Decision Making MDM MDM: DIFFERENTIAL DIAGNOSIS: COVID, INFLUENZA, STREP PHARYNGITIS, VIRAL URI RATIONALE: TESTS CONSIDERED AND ORDERED SECONDARY TO SHARED DECISION MAKING INCLUDE: PREVIOUS OUTSIDE RECORDS REVIEWED: OLD ER VISITS. MEDICATIONS-PER MEDICATION RECONCILIATION NEED FOR HOSPITALIZATION: PATIENT DOES NOT MEET CRITERIA FOR HOSPITALIZATION. NEED FOR EMERGENCY MAJOR/MINOR SURGERY: NO PATIENT'S PRIOR EXTERNAL MEDICAL RECORDS FROM OTHER ER VISITS WERE REVIEWED BY ME INDICATED. PRIOR TESTING AND RESULTS FROM PREVIOUS VISITS WERE REVIEWED. PRIOR TESTS WERE TAKEN INTO ACCOUNT WITH MEDICAL DECISION MAKING AND RESOURCE UTILIZATION, INDEPENDENT HISTORIAN/HISTORIANS WERE USED TO OBTAIN COMPLETE MEDICAL HISTORY. I INDEPENDENTLY INTERPRETED THE TEST THAT WERE PERFORMED, RESULTS WERE REVIEWED BY ME AND CONSIDERED FINDINGS ON RADIOLOGY IF ORDERED. MEDICAL MANAGEMENT AND EXAMINATION INTERPRETATION DISCUSSIONS WERE HAD BY ME WITH OTHER QUALIFIED HEALTHCARE PROFESSIONALS INDICATED FOR THE PATIENT'S CARE. PATIENT PRESENTING WITH STABLE VITAL SIGNS. AFEBRILE, NONSEPTIC APPEARING. LUNGS ARE CLEAR TO AUSCULTATION WITH NO WHEEZING, RALES, RHONCHI. SWABS FOR ORDERED AND NEGATIVE FOR COVID, FLU, STREP. PATIENT WILL BE DISCHARGED HOME SYMPTOMATIC TREATMENT RECOMMENDED FOLLOW UP WITH PCP. DX & DISP Disposition: Discharge Departure Impression: Primary Impression: Viral URI Condition: Stable Scripts Acetaminophen (Tylenol Extra Strength) 500 Mg Tablet 1 TAB PO TIDP PRN for pain or fever for 3 Days, #10 TAB 0 Refills Prov: ANTOINETTE MARQUIS 12/21/24 D-Methorphan Hb/P-Epd HCl/Bpm (Bromfed Dm Cough Syrup) 2 Mg-30 Mg-10 Mg/5 Ml Syrup 10 ML PO Q6HPRN PRN for COUGH/COLD SYMPTOMS, #120 ML Prov: ANTOINETTE MARQUIS 12/21/24 Additional Instructions: DISCHARGE HOME. REST. FOLLOW UP WITH PRIMARY CARE DRPapo IN 24 HOURS. RETURN TO THE ER FOR ANY ACUTE CHANGE. PATIENT WAS ALSO ADVISED TO FOLLOW-UP WITH PRIMARY CARE PHYSICIAN IN 1 TO 2 DAYS FOR CONTINUED MONITORING. ALL INSTRUCTIONS WERE GIVEN TO LAYMANS TERM AND PATIENT AGREEABLE TO DISCHARGE AND PROPER FOLLOW-UP. Referrals: CLARK JOAQUIN MD (PCP) I have reviewed the case, and I agree with, Diagnosis and Plan ANTOINETTE MARQUIS Dec 21, 2024 19:13
[2024-12-21 19:20] VITALS: BP 135/70; PULSE 82; RESP 16; TEMP 98.2; O2SAT 98
[2024-12-21 19:22] LABS: COVID19 (SARS ANTIGEN RAPID) PRESUMPTIVE NEGATIVE (NEGATIVE); INFLUENZA TYPE A Negative For Type A (NEGATIVE); INFLUENZA TYPE B Negative For Type B (NEGATIVE)
[2024-12-21] MEDS ORDERED: BROM118S48 PO (19:29)
[2024-12-21] MEDS ORDERED: ACET-2743 PO (19:29)
== END 2024-12-21 19:45 | disposition home or self-care (01) ==
LOC: EDH 18:43
DX: J06.9 Acute upper respiratory infection, unspecified (principal); B97.89 Other viral agents as the cause of diseases classified elsewhere; E11.9 Type 2 diabetes mellitus without complications; E78.00 Pure hypercholesterolemia, unspecified; I10 Essential (primary) hypertension; I25.10 Atherosclerotic heart disease of native coronary artery without angina pectoris; Z79.02 Long term (current) use of antithrombotics/antiplatelets; Z79.82 Long term (current) use of aspirin; Z79.84 Long term (current) use of oral hypoglycemic drugs; Z79.899 Other long term (current) drug therapy; Z86.73 Personal history of transient ischemic attack (TIA), and cerebral infarction without residual deficits; Z88.5 Allergy status to narcotic agent; Z95.5 Presence of coronary angioplasty implant and graft; Z20.822 Contact with and (suspected) exposure to COVID-19
CPT/HCPCS: 87426; 87804; 87880; 99283

== ENCOUNTER 2025-02-12 15:33 | Observation (INO) | payer BC ==
[~2025-02-12] VITALS: Ht 167.6 cm; Wt 82.6 kg
[~2025-02-12 15:33] MED LIST changes: +ACET-2743 PO; +BROM118S48 PO
--- NOTE | 2025-02-12 15:58 | EKG ---
[facility] Test Date: 2025-02-12 Test Time: 15:51:13 Pat Name: SEAN SWARTZ Department: ED Room: Gender: M Enrichment Assistant: [id number] : [id number] Requested By: TESS ROMAN Order Number: [id number] Reading MD: Joelle King Measurements Intervals [place] Rate: 92 P: 29 [place]: 145 QRS: -62 QRSD: 86 T: 29 QT: 344 QTc: 427 Interpretive Statements Sinus rhythm Inferior infarct, old Compared to ECG 03/09/2024 14:43:45 Myocardial infarct finding now present Electronically Signed On 02-12-2025 16:31:21 CDT by Joelle King Please click the below link to view image of tracing.
[2025-02-12 16:17] LABS: IMMATURE GRANULOCYTE ABSOLUTE 0.05 K/uL (0-1); NUCLEATED RED BLOOD CELLS 0.0 % (0.0-0.19); PLATELET COUNT (AUTO) 197 K/uL (130-400); RED BLOOD CELL COUNT(AUTO) 5.69 MIL/uL (4.50-6.20); RED CELL DISTRIBUTION WIDTH 12.8 % (11.0-15.5); WHITE BLOOD COUNT (AUTO) 14.3 K/uL (4.8-10.8)
[2025-02-12 16:32] LABS: CREATININE 0.9 mg/dL (0.5-1.3); GLOMERULAR FILTR. RATE CALC 100.0 mL/min (>90); GLUCOSE,RANDOM 156.0 mg/dL (70-105); SODIUM SERUM 140.0 mmol/L (136-145); UREA NITROGEN, BLOOD 25.0 mg/dL (7-18)
[2025-02-12] MEDS: FAMOTIDINE 20MG VIAL IV ONE (16:33)
[2025-02-12 16:34] LABS: ASPARTATE AMINOTRANSFERASE 12.0 U/L (10-37); TOTAL PROTEIN, SERUM 7.6 g/dL (6.0-8.3)
[2025-02-12] MEDS: 0.9%NACL 1000ML 1,000 ML IV STA ×2 (16:34→20:18)
[2025-02-12 16:48] LABS: ADD UA MICROSCOPIC NO; APPEARANCE,URINE CLEAR (CLEAR); GLUCOSE, URINE (UA) >=1000 mg/dL (NEGATIVE); LEUKOCYTE ESTERASE ,URINE NEGATIVE Leu/uL (NEGATIVE); NITRATE,URINE NEGATIVE (NEGATIVE); OCCULT BLOOD,URINE NEGATIVE (NEGATIVE)
--- NOTE | 2025-02-12 17:22 | HMCIMG ---
EXAM: CR Chest, 1 View. CLINICAL HISTORY: sob COMPARISON: None provided. FINDINGS: LUNGS: Mild bibasilar airspace disease may reflect atelectasis. Lungs are otherwise clear. PLEURAL SPACES: No evidence of pleural effusion or pneumothorax. MEDIASTINUM: Cardiac size and mediastinal contours within normal limits. BONES: No acute osseous abnormality. IMPRESSION: No acute cardiopulmonary pathology is evident. /[place]
[2025-02-12] MEDS ORDERED: IOHEXOL-350 75 ML VIAL IV ONE (17:36)
--- NOTE | 2025-02-12 19:06 | HMCIMG ---
EXAM: CT Abdomen and Pelvis with IV contrast CLINICAL HISTORY: Abdomoinal pain, leukocytosis TECHNIQUE: Axial computed tomography images of the abdomen and pelvis with intravenous contrast. COMPARISON: CT abdomen and pelvis dated 01/11/2024. FINDINGS: LUNG BASES: The lung bases appear clear. No pleural effusions are seen. LIVER: Enlarged in size measuring 18.5 cm. Few subcentimeter cysts in the right lobe of the liver. GALLBLADDER AND BILE DUCTS: The gallbladder appears within normal limits. No radiopaque gallstones are seen. No biliary ductal dilatation is evident. PANCREAS: Unremarkable. SPLEEN: Unremarkable. ADRENAL GLANDS: Unremarkable. KIDNEYS, URETERS, AND BLADDER: Bilateral perinephric fat stranding. There is no hydronephrosis or hydroureter. No urinary calculi are seen. The bladder is unremarkable. STOMACH AND BOWEL: There is suggestion of mild concentric wall thickening at the distal gastric body and gastric antrum (series 2, image 34). This may be accentuated by underdistention; however, if warranted may be further evaluated with endoscopy. Otherwise, bowel loops are normal in caliber without evidence of obstruction, ileus, or bowel wall thickening. Colonic diverticulosis with no evidence of acute diverticulitis. APPENDIX: No evidence of acute appendicitis on CT examination. PERITONEUM: No free fluid. No free air. LYMPH NODES: No lymphadenopathy is evident. REPRODUCTIVE: Mild prostatomegaly measuring 34 cc. VASCULATURE: No evidence of abdominal aortic aneurysm. Atherosclerotic intimal wall calcifications involving abdominal aorta and its branches. BONES: No aggressive appearing osseous lesion. No acute osseous pathology evident. Mild to moderate lumbar spondylosis Bilateral inguinal measuring 1.6 cm on the right side 1.4 cm on the left side with herniation of omental fat. IMPRESSION: 1. No acute intraabdominal or pelvic pathology. 2. Hepatomegaly measuring 18.5 cm. 3. Bilateral perinephric fat stranding. Recommend correlation with laboratory parameters to exclude renal parenchymal disease. 4. Mild concentric wall thickening at the distal gastric body and antrum, possibly due to underdistention. Clinical correlation is advised, and if warranted endoscopy may be obtained for further evaluation. 5. Bilateral inguinal hernias with omental fat herniation. /[place]
--- NOTE | 2025-02-12 19:50 | ERN ---
ED Note History of Present Illness Stated Complaint: ABD PAIN Chief Complaint: Abdominal Pain Time Seen by MD: 15:38 Time Seen by Midlevel: 15:40 Dictation: 59-year-old male with history of hypertension, diabetes, previous HI coming in with complaints of abdominal pain, generalized with nausea and back pain. Patient states it started last night after eating onions. Denies any vomiting or diarrhea. Denies any dysuria or hematuria. Denies any fever. Denies any chest pain or chest discomfort. Allergies: Coded Allergies: morphine (Verified Allergy, Unknown, 09/17/17) Home Meds Active Scripts Acetaminophen (Tylenol Extra Strength) 500 Mg Tablet, 1 TAB PO TIDP PRN for pain or fever for 3 Days, #10 TAB 0 Refills Prov:ANTOINETTE MARQUIS 12/21/24 D-Methorphan Hb/P-Epd HCl/Bpm (Bromfed Dm Cough Syrup) 2 Mg-30 Mg-10 Mg/5 Ml Syrup, 10 ML PO Q6HPRN PRN for COUGH/COLD SYMPTOMS, #120 ML Prov:ANTOINETTE MARQUIS 12/21/24 Lidocain/Me-Salicyl/Caps/Menth (Medi-Patch with Lidocaine) 0.5 %-20 %-0.035 %-5 % Adh..patch, 1 EACH TP DAILY for 5 Days, #5 ADH.PATCH Prov:JEOVANNY IYER 10/16/24 Meloxicam (Meloxicam) 15 Mg Tablet, 15 MG PO DAILY PRN for PAIN for 10 Days, #10 TAB Prov:MAURISIO BERUMEN DO 09/12/24 Carbamazepine (Carbamazepine ER) 100 Mg Tab.er.12h, 1 TAB PO BID for 30 Days, #120 TAB 0 Refills Prov:MAURISIO BERUMEN DO 03/09/24 Acetaminophen with Codeine (Acetaminophen-Cod #3 Tablet) 300 Mg-30 Mg Tablet, 1 EACH PO TID for headache, #15 TAB Prov:CHRISTINA MA MD 01/15/24 Gabapentin (Gabapentin) 100 Mg Capsule, 100 MG PO TID, #60 CAP Prov:CHRISTINA MA MD 01/15/24 Empagliflozin (Jardiance) 25 Mg Tablet, 25 MG PO DAILY, #90 TAB 1 Refill Prov:CLARK JOAQUIN MD 01/15/24 Levofloxacin (Levofloxacin) 500 Mg Tablet, 500 MG PO DAILY, #5 TAB 0 Refills Prov:CLARK JOAQUIN MD 01/15/24 Metoprolol Succinate (Metoprolol Succinate) 25 Mg Tab.er.24h, 25 MG PO DAILY for 30 Days, #30 TAB 0 Refills Prov:KEANU PINEDA MD 01/15/24 Prasugrel HCl (Prasugrel HCl) 10 Mg Tablet, 10 MG PO DAILY, #90 TAB 3 Refills Prov:KEANU PINEDA MD 01/15/24 Ezetimibe/Rosuvastatin Calcium (Rosuvastatin-Ezetimibe 10-10Mg) 10 Mg-10 Mg Tablet, 1 EACH PO DAILY, #90 TAB 3 Refills Prov:KEANU PINEDA MD 01/15/24 Fluticasone Propionate (Flonase Allergy Relief) 50 Mcg/Actuation [place].susp, 1 SPRAY NS BID PRN for ALLEGIES, #7 ML Prov:CLARK JOAQUIN MD 01/12/24 Albuterol Sulfate (Proair Respiclick) 90 Mcg Aer.pow.ba, 2 PUFF IH Q6HPRN PRN for SHORTNESS OF BREATH/WHEEZING, #90 EA Prov:CLARK JOAQUIN MD 01/12/24 Omeprazole (Omeprazole) 40 Mg Capsule.dr, 40 MG PO DAILY PRN for HEARTBURN, #90 CAP Prov:CLARK JOAQUIN MD 01/12/24 Dulaglutide (Trulicity) 1.5 Mg/0.5 Ml Pen.injctr, 1.5 MG SQ QWEEK for 90 Days, #4 ML Prov:CLARK JOAQUIN MD 01/12/24 Reported Medications Losartan Potassium (Losartan Potassium) 25 Mg Tablet, 25 MG PO DAILY, TAB 01/11/24 Glipizide (Glipizide) 10 Mg Tablet, 10 MG PO BID, TAB 01/11/24 Aspirin (ASPIRIN 81 MG ECTAB) 81 Mg Ectab, 81 MG PO DAILY, TAB.EC 01/11/24 Past Medical History Past Medical History: CAD, Diabetes-Type II, High Cholesterol, Heart Disease, Hypertension, HI, Stroke Additional Past Medical Hx: CARDIAC STENTS ON ANTICOAGULANTS Surgical History: None Surgical History Other: CARDIAC CATHETERIZATION Review of System Dictation Constitutional: Negative for fever,chills, and weight loss Eyes: Negative for injury, pain,redness, and discharge ENT: Negative for injury,pain or swelling Cardiovascular: Negative for chest pain, palpitations, and edema Respiratory: Negative for shortness of breath, cough, and wheezing, Abdomen/GI: Denies abdominal pain with nausea Back: Negative for injury and pain : Negative for injury, bleeding and discharge MS/Extremity: Negative for injury and deformity Skin: Negative for rash, and discoloration Neuro: Negative for headache, weakness, numbness, tingling, and seizure Psych: Negative for suicide ideation, homicidal ideation, and hallucinations Review of Systems: was completed Initial Vital Sign VS Vital Signs Date Time Temp Pulse Resp B/P (MAP) Pulse Ox O2 Delivery O2 Flow Rate FiO2 02/12/25 15:36 98.2 89 18 132/79 97 02/12/25 16:11 Room Air* 0 21 Physical Exam Dictation General: awake, alert, NAD Head/Face: Normocephalic, atraumatic Eyes: PERRL, EOMI, vision at baseline ENT: oral cavity clear, TMs clear, no signs of infection Neck: Trachea midline, supple, no nuchal rigidity Cardiovascular: RRR, normal S1/S2, No MRGs, no JVD Respiratory: CTAB, no respiratory distress, No rales or wheezes Abdomen: Soft, non-tender, non-distended, normal bowel sounds, no guarding or rebound. Mild tenderness on palpation to the right lower quadrant Skin: Warm, dry, normal turgor, no rash MS/Extremity: Pulses equal, no cyanosis, neurovascular intact, FROM Neuro: COAx4, GCS 15, strength 5/5, CN 2-12 intact, normal cerebellar exam, normal gait, Psych: Normal behavior, mood, and affect normal Results (Laboratory/Radiology) Laboratory/Radiology Laboratory Tests Test 02/12/25 16:00 02/12/25 16:09 Urine Color LIGHT-YELLOW (YELLOW) Urine Appearance CLEAR (CLEAR) Urine pH 5.5 (5.0-8.0) Urine Specific [place] 1.036 (1.001-1.031) Urine Protein NEGATIVE mg/dL (NEGATIVE) Urine Glucose (UA) >=1000 mg/dL (NEGATIVE) H Urine Ketones 10 mg/dL (NEGATIVE) H Urine Occult Blood NEGATIVE (NEGATIVE) Urine Nitrate NEGATIVE (NEGATIVE) Urine Bilirubin NEGATIVE mg/dL (NEGATIVE) Urine Urobilinogen 0.2 mg/dL (0.2-1.0) Urine Leukocyte Esterase NEGATIVE [place]/uL White Blood Count 14.3 K/uL (4.8-10.8) H Red Blood Count 5.69 MIL/uL (4.50-6.20) Hemoglobin 17.9 g/dL (14.0-18.0) Hematocrit 52.2 % (42-54) Mean Corpuscular Volume 91.7 fL (79-99) Mean Corpuscular Hemoglobin 31.5 pg (27.0-33.0) Mean Corpuscular Hemoglobin Concent 34.3 g/dL (32.0-36.0) Red Cell Distribution Width 12.8 % (11.0-15.5) Platelet Count 197 K/uL (130-400) Mean Platelet Volume 9.1 fL (7.5-10.5) Immature Granulocyte % (Auto) 0.3 % (0-1) Neutrophils (%) (Auto) 92.2 % (40.0-77.0) H Lymphocytes (%) (Auto) 3.5 % (21.0-51.0) L Monocytes (%) (Auto) 3.0 % (3.0-13.0) Eosinophils (%) (Auto) 0.7 % (0.0-8.0) Basophils (%) (Auto) 0.3 % (0.0-5.0) Neutrophils # (Auto) 13.2 K/uL (1.8-7.7) H Lymphocytes # (Auto) 0.5 K/uL (1.0-4.8) L Monocytes # (Auto) 0.4 K/uL (0.1-1.0) Eosinophils # (Auto) 0.10 K/uL (0.00-0.70) Basophils # (Auto) 0.05 K/uL (0.00-0.20) Absolute Immature Granulocyte (auto 0.05 K/uL (0-1) Nucleated Red Blood Cells 0.0 % (0.0-0.19) White Cell Morphology Comment See comments Sodium Level 140 mmol/L (136-145) Potassium Level 4.1 mmol/L (3.5-5.1) Chloride Level 104 mmol/L (101-111) Carbon Dioxide Level 23 mmol/L (21-32) Blood Urea Nitrogen 25 mg/dL (7-18) H Creatinine 0.9 mg/dL (0.5-1.3) Glomerular Filtration Rate Calc 100 mL/min (>90) Random Glucose 156 mg/dL (70-105) H Total Calcium 8.8 mg/dL (8.5-10.1) Total Bilirubin 0.8 mg/dL (0.2-1.0) Direct Bilirubin 0.2 mg/dL (0.0-0.3) Aspartate Amino Transf (AST/SGOT) 12 U/L (10-37) Alanine Aminotransferase (ALT/SGPT) 37 U/L (12-78) Alkaline Phosphatase 75 U/L (50-136) Troponin I High Sensitivity < 4 ng/L (4-75) L Total Protein 7.6 g/dL (6.0-8.3) Albumin 4.1 g/dL (3.5-5.0) Lipase 36 U/L (16-77) Labs Reviewed?: Yes EKG Comment: EKGs done at 3:51 p.m.. Sinus rhythm, rate 92, inferior infarct, old. No STEMI interpreted by ER MD CT Scan Comment: [place] [id number] [place] [id number] IMAGING REPORT Signed PATIENT: SEAN SWARTZ MR#: [id number] : 1965 SEX: M AGE: 59 LOCATION: [facility] ORDER 23 STATUS: REG ER REPORT#: [id number] SERVICE 22 REASON: abdomoinal pain, leukocytosis ORDERING PHYSICIAN: TESS ROMAN NP PROCEDURE: ABD PEL W - CT ABDOMEN/PELVIS W/CONTRAST EXAM: CT Abdomen and Pelvis with IV contrast CLINICAL HISTORY: Abdomoinal pain, leukocytosis TECHNIQUE: Axial computed tomography images of the abdomen and pelvis with intravenous contrast. COMPARISON: CT abdomen and pelvis dated 01/11/2024. FINDINGS: LUNG BASES: The lung bases appear clear. No pleural effusions are seen. LIVER: Enlarged in size measuring 18.5 cm. Few subcentimeter cysts in the right lobe of the liver. GALLBLADDER AND BILE DUCTS: The gallbladder appears within normal limits. No radiopaque gallstones are seen. No biliary ductal dilatation is evident. PANCREAS: Unremarkable. SPLEEN: Unremarkable. ADRENAL GLANDS: Unremarkable. KIDNEYS, URETERS, AND BLADDER: Bilateral perinephric fat stranding. There is no hydronephrosis or hydroureter. No urinary calculi are seen. The bladder is unremarkable. STOMACH AND BOWEL: There is suggestion of mild concentric wall thickening at the distal gastric body and gastric antrum (series 2, image 34). This may be accentuated by underdistention; however, if warranted may be further evaluated with endoscopy. Otherwise, bowel loops are normal in caliber without evidence of obstruction, ileus, or bowel wall thickening. Colonic diverticulosis with no evidence of acute diverticulitis. APPENDIX: No evidence of acute appendicitis on CT examination. PERITONEUM: No free fluid. No free air. LYMPH NODES: No lymphadenopathy is evident. REPRODUCTIVE: Mild prostatomegaly measuring 34 cc. VASCULATURE: No evidence of abdominal aortic aneurysm. Atherosclerotic intimal wall calcifications involving abdominal aorta and its branches. BONES: No aggressive appearing osseous lesion. No acute osseous pathology evident. Mild to moderate lumbar spondylosis Bilateral inguinal measuring 1.6 cm on the right side 1.4 cm on the left side with herniation of omental fat. IMPRESSION: 1. No acute intraabdominal or pelvic pathology. 2. Hepatomegaly measuring 18.5 cm. 3. Bilateral perinephric fat stranding. Recommend correlation with laboratory parameters to exclude renal parenchymal disease. 4. Mild concentric wall thickening at the distal gastric body and antrum, possibly due to underdistention. Clinical correlation is advised, and if warranted endoscopy may be obtained for further evaluation. 5. Bilateral inguinal hernias with omental fat herniation. /[place] DICTATED BY: CUAUHTEMOC LOCKHART Jr., MD DATE: 02/12/252004 ELECTRONICALLY SIGNED BY: CUAUHTEMOC LOCKHART Jr., MD DATE: 02/12/252004 ED Course ED Course Orders Procedure Category Date Status Time 12 Lead Ekg Tracing- EKG 02/12/25 Resulted Technical 15:50 Cbc With Differential LAB 02/12/25 Complete 15:55 Basic Metabolic Panel LAB 02/12/25 Complete 15:55 Lipase LAB 02/12/25 Complete 15:55 Hepatic Function Panel LAB 02/12/25 Complete 15:55 12 Lead Ekg Tracing- EKG 02/12/25 Logged Technical 15:55 Troponin I High LAB 02/12/25 Complete Sensitivity 15:55 Chest 1vw RAD 02/12/25 Resulted 15:55 0.9%Nacl 1000ml (Ns PHA 02/12/25 Complete 1000ml) 15:55 Ondansetron 4mg Inj PHA 02/12/25 Complete (Zofran 4mg Inj) 16:00 Famotidine 20mg Vial PHA 02/12/25 Complete (Pepcid 20mg Vial) 16:00 Urinalysis Profile LAB 02/12/25 Complete 16:35 Ct Abdomen/Pelvis CT 02/12/25 Resulted W/Contrast 17:23 Iohexol (Omnipaque) PHA 02/12/25 Complete 17:36 Metoclopramide 10 PHA 02/12/25 Complete Mg/2 Ml Vial (Reglan 1 20:00 0.9%Nacl 1000ml (Ns PHA 02/12/25 In Process 1000ml) 20:00 Ketorolac PHA 02/12/25 In Process Tromethamine 15mg/Ml 20:30 Current Medications Medications (Trade) Dose Ordered Sig/Shanti Route PRN Reason Start Time Stop Time Status Last Admin Dose Admin Famotidine (Pepcid 20mg Vial) 20 mg ONCE ONCE IV 02/12/25 16:00 02/12/25 16:01 DC 02/12/25 16:33 Iohexol (Omnipaque) 75 ml STK-MED ONCE IV 02/12/25 17:36 02/12/25 17:36 DC Ketorolac Tromethamine (toRADol) 15 mg ONCE ONCE IV 02/12/25 20:30 02/12/25 20:31 Metoclopramide HCl (regLAN 10MG IV) 10 mg ONCE ONCE IVP 02/12/25 20:00 02/12/25 20:04 DC Ondansetron HCl (zoFRAN 4MG INJ) 4 mg ONCE ONCE IVP 02/12/25 16:00 02/12/25 16:01 DC 02/12/25 16:33 Sodium Chloride 1,000 ml @ 1,000 mls/hr Q1H STAT IV 02/12/25 15:55 02/12/25 16:54 DC 02/12/25 16:34 Sodium Chloride 1,000 ml @ 1,000 mls/hr Q1H STAT IV 02/12/25 20:00 02/12/25 20:59 Vital Signs Date Time Temp Pulse Resp B/P (MAP) Pulse Ox O2 Delivery O2 Flow Rate FiO2 02/12/25 19:17 98.1 92 18 134/78 97 Room Air* 0 21 02/12/25 18:15 91 20 154/80 99 Room Air* 0 21 02/12/25 16:11 97.9 93 20 119/82 99 Room Air* 0 21 02/12/25 15:36 98.2 89 18 132/79 97 Medical Decision Making MDM MDM: 59-year-old male with history of hypertension, diabetes, previous HI coming in with complaints of abdominal pain, generalized with nausea and back pain. Patient states it started last night after eating onions. Denies any vomiting or diarrhea. Denies any dysuria or hematuria. Denies any fever. Denies any chest pain or chest discomfort.CBC shows white count of , no anemia, no thrombo cytopenia. Chemistry shows no electrolyte abnormality. Normal kidney function. No transaminitis. Lipase within normal range. UA shows no evidence of urinary tract infection, but has not ketones could be related to dehydration.CT scan of the abdomen and pelvis shows hepatomegaly, bilateral perinephric fat stranding, mild concentric wall thickening of the distal gastric body and antrum possibly due to under distention, bilateral inguinal hernias. Findings were discussed with the patient, educated patient if he wanted to be discharged and I can discharge him with the antibiotics and follow up with the his PCP. However patient and spouse expressed concerns since they live far away and they has a history of being sepsis they would rather be admitted for further evaluation and IV fluids and antibiotics. To Dr. Lozano. Olivares to admit patient for gastroenteritis and intractable abdominal pain. Differential diagnosis: Gastroenteritis, dehydration, electrolyte abnormality, kidney stone Rationale: Tests considered and ordered secondary to shared decision making include: labs, ECG and radiology Previous outside records reviewed: Old ER visits. Risk of complication and/or morbidity or mortality of patient management: None Medications-Per medication reconciliation Need for hospitalization: Patient does meet criteria for hospitalization. Need for emergency major/minor surgery: No There are no social concerns with this patient. Prescription drug management Prescriptions will include symptomatic care Patient's prior external medical records from other ER visits were reviewed by me as indicated. Prior testing and results from previous visits were reviewed. Prior tests were taken into account with medical decision making and resource utilization, independent historian/historians were used to obtain complete medical history. I independently interpreted the test that were performed, results were reviewed by me and considered findings on radiology if ordered. Medical management and examination interpretation discussions were had by me with other qualified healthcare professionals as indicated for the patient's care. DX & DISP Disposition: Inpatient Decision to Admit Date: Feb 12, 2025 Departure Impression: Primary Impression: Gastroenteritis Additional Impressions: Dehydration, Intractable abdominal pain Condition: Stable Referrals: CLARK JOAQUIN MD (PCP) Time of Disposition: 20:08 I have reviewed the case, and I agree with, Diagnosis and Plan TESS ROMAN NP Feb 12, 2025 19:50
--- NOTE | 2025-02-12 22:01 | NUR ---
REPORT GIVEN TO AMANDA ESQUIVEL
[2025-02-12 22:05] VITALS: BP 142/74; PULSE 80; RESP 18; TEMP 98.2; O2SAT 94
[2025-02-12] MEDS: 0.9%NACL 1000ML 1,000 ML IV SCH (22:36)
[2025-02-12] MEDS ORDERED: ROSU20TA98 PO (22:52)
[2025-02-12] MEDS ORDERED: CLOP75TA32 PO (22:52)
[2025-02-12] MEDS ORDERED: TAMS-55 PO (22:52)
[2025-02-13 04:03] VITALS: BP 119/70; PULSE 77; RESP 18; TEMP 98.5
[2025-02-13 05:55] LABS: NUCLEATED RED BLOOD CELLS 0.0 % (0.0-0.19); PLATELET COUNT (AUTO) 181.0 K/uL (130-400); RED BLOOD CELL COUNT(AUTO) 4.75 MIL/uL (4.50-6.20); RED CELL DISTRIBUTION WIDTH 13.1 % (11.0-15.5); WHITE BLOOD COUNT (AUTO) 8.0 K/uL (4.8-10.8)
[2025-02-13 06:09] LABS: CREATININE 1.0 mg/dL (0.5-1.3); GLOMERULAR FILTR. RATE CALC 88.0 mL/min (>90); GLUCOSE,RANDOM 129.0 mg/dL (70-105); SODIUM SERUM 140.0 mmol/L (136-145); UREA NITROGEN, BLOOD 22.0 mg/dL (7-18)
[2025-02-13 07:42] VITALS: BP 122/64; PULSE 87; RESP 18; TEMP 98.2
[2025-02-13] MEDS ORDERED: NITR0.4T50 SL (08:24)
[2025-02-13] MEDS ORDERED: EZET10TA80 PO (08:24)
[2025-02-13] MEDS ORDERED: ASPI-1443 PO (08:24)
[2025-02-13] MEDS ORDERED: LOSA25TA41 PO (08:24)
[2025-02-13] MEDS ORDERED: ROSU20TA98 PO (08:24)
[2025-02-13] MEDS ORDERED: CLOP75TA32 PO (08:24)
[2025-02-13] MEDS ORDERED: GABA-529 PO (08:24)
[2025-02-13] MEDS ORDERED: TAMS-55 PO (08:24)
[2025-02-13 08:30] VITALS: O2SAT 96
--- NOTE | 2025-02-13 08:50 | HP ---
HISTORY AND PHYSICAL Date of Visit: Feb 13, 2025 Time of Visit: 08:50 ADMISSION DATE: Feb 12, 2025 at 20:55 CC: ABD PAIN HPI: THIS IS A 59 YR OLD MAN WITH HISTORY OF DM HTN CHOL. HE PRESENTED COMPLAINING OF BILATERAL LOWER ABDOMINAL PAIN IT IS DESCRIBED ACUTE ONSET AND RADIATED TO RIGHT SIDE OF HIS BACK. PATIENT REPORTS HE THINKS MAY HAVE BEEN RELATED TO SOMETHING HE ATE WHEN HE ATE AT A LOCAL [employer] AND THE FOOD APPEARED COLD. HE HAS FE;T FEVERISH AND CHILLS AND ASSOCIATED WITH NAUSEA AND NO VOMITING. HE IS ON A GLP1 FOR DM CONTROL WELL HAD ALREADY TAKEN HIS DOSE FOR THE WEEK. NO URINARY SYMPTOMS. HE DID HAVE SOME LOOSE STOOLS BUT NO RANK DIARRHEA. PAST MEDICAL HISTORY: DM II UNCONTROLLED WITH HYPERGLYCEMIA DM II W PERIPHERAL POLYNEUROPATHY FATTY LIVER MIXED HYPERLIPIDEMIA GERD LUMBAR DISC DISEASE HYPERTENSIVE HEART AND RENAL DISEASE / CKD 2 CAD HX OF PREVIOUS ISCHEMIC STROKE ALLERGIC RHINITIS BPH SOCIAL HISTORY: LIVES LOCALLY WITH NO CURRENT SMOKING OR DRUG ABUSE AND DRINKS ONE 12 OZ BEER DAILY ^ FAMILY HISTORY: [] Patient History: Diabetes mellitus MOTHER, Onset:Unknown FATHER, Onset:Unknown Allergies: Coded Allergies: morphine (Verified Allergy, Unknown, 09/17/17) Scheduled Aspirin (Aspirin EC), 81 MG PO DAILY Clopidogrel Bisulfate (Clopidogrel), 75 MG PO DAILY Empagliflozin (Jardiance), 25 MG PO DAILY Ezetimibe (Ezetimibe), 10 MG PO DAILY Gabapentin (Gabapentin), 100 MG PO DAILY Glipizide (Glipizide), 10 MG PO BID, (Reported) Levofloxacin (Levofloxacin), 1 TAB PO DAILY Losartan Potassium (Losartan Potassium), 25 MG PO BID Nitroglycerin (Nitroglycerin), 1 TAB SL AD Rosuvastatin Calcium (Rosuvastatin Calcium), 20 MG PO DAILY Tamsulosin HCl (Flomax), 0.4 MG PO HS Scheduled PRN Omeprazole (Omeprazole), 40 MG PO DAILY PRN for HEARTBURN Discontinued Medications Carbamazepine (Carbamazepine ER), 1 TAB PO BID Dulaglutide (Trulicity), 1.5 MG SQ QWEEK Ezetimibe/Rosuvastatin Calcium (Rosuvastatin-Ezetimibe 10-10Mg), 1 EACH PO DAILY Gabapentin (Gabapentin), 100 MG PO TID Lidocain/Me-Salicyl/Caps/Menth (Medi-Patch with Lidocaine), 1 EACH TP DAILY Review of Systems Normal Constitutional:, Normal Eyes:, Normal Ear/Nose/Mouth/Throat, Normal Cardiovascular:, Normal Respiratory:, Normal Genitourinary:, Normal Integumentary:, Normal Musculoskeletal:, Normal Neurological:, Normal Psychological:, Normal Endocrine:, Normal Hematologic/Lymphatic:, Normal Allergic/Immunologic:; Abnormal Gastrointestinal: (REFER TO HPI) Physical Exam Vital Signs Vital Signs Date Time Temp Pulse Resp B/P (MAP) Pulse Ox O2 Delivery O2 Flow Rate FiO2 02/12/25 15:36 98.2 89 18 132/79 97 02/12/25 16:11 Room Air* 0 21 Appearance: Obese Eyes: Clear, PERRL, EOM Normal Ear/Nose/Mouth/Throat: Landmarks WNL Neck: Thyroid WNL Cardiovascular: PMI WNL, Regular Rate, Regular Rhythm, Normal S1, S2, No Edema Respiratory: No Retractions, Lungs clear G.I.: Normal bowel sounds, No rebound tenderness, Abnormal (TENDER BILATERAL LOWER QUADRANTS) Lymphatic: No lymphadenopathy neck, No lymphadenopathy groin Musculoskeletal: Gait WNL, Normal ROM, Strength/Tone WNL Breasts: Symmetrical, no masses Skin: No rash/ulcers Neurology: Nerves I-XII intact, Sensation WNL Psychology: Insight WNL, Orientation WNL, Memory WNL, Affect WNL Diagnostics Laboratory Tests Test 02/12/25 16:00 02/12/25 16:09 02/12/25 23:00 02/13/25 05:34 Range/Units Urine Color LIGHT-YELLOW YELLOW Urine Appearance CLEAR CLEAR Urine pH 5.5 5.0-8.0 Urine Specific [place] 1.036 1.001-1.031 Urine Protein NEGATIVE NEGATIVE mg/dL Urine Glucose (UA) >=1000 NEGATIVE mg/dL Urine Ketones 10 NEGATIVE mg/dL Urine Occult Blood NEGATIVE NEGATIVE Urine Nitrate NEGATIVE NEGATIVE Urine Bilirubin NEGATIVE NEGATIVE mg/dL Urine Urobilinogen 0.2 0.2-1.0 mg/dL Urine Leukocyte Esterase NEGATIVE NEGATIVE Jaqueline/uL White Blood Count 14.3 4.8-10.8 K/uL Red Blood Count 5.69 4.50-6.20 MIL/uL Hemoglobin 17.9 14.0-18.0 g/dL Hematocrit 52.2 42-54 % Mean Corpuscular Volume 91.7 79-99 fL Mean Corpuscular Hemoglobin 31.5 27.0-33.0 pg Mean Corpuscular Hemoglobin Concent 34.3 32.0-36.0 g/dL Red Cell Distribution Width 12.8 11.0-15.5 % Platelet Count 197 130-400 K/uL Mean Platelet Volume 9.1 7.5-10.5 fL Immature Granulocyte % (Auto) 0.3 0-1 % Neutrophils (%) (Auto) 92.2 40.0-77.0 % Lymphocytes (%) (Auto) 3.5 21.0-51.0 % Monocytes (%) (Auto) 3.0 3.0-13.0 % Eosinophils (%) (Auto) 0.7 0.0-8.0 % Basophils (%) (Auto) 0.3 0.0-5.0 % Neutrophils # (Auto) 13.2 1.8-7.7 K/uL Lymphocytes # (Auto) 0.5 1.0-4.8 K/uL Monocytes # (Auto) 0.4 0.1-1.0 K/uL Eosinophils # (Auto) 0.10 0.00-0.70 K/uL Basophils # (Auto) 0.05 0.00-0.20 K/uL Absolute Immature Granulocyte (auto 0.05 0-1 K/uL Nucleated Red Blood Cells 0.0 0.0-0.19 % White Cell Morphology Comment See comments Sodium Level 140 136-145 mmol/L Potassium Level 4.1 3.5-5.1 mmol/L Chloride Level 104 101-111 mmol/L Carbon Dioxide Level 23 21-32 mmol/L Blood Urea Nitrogen 25 7-18 mg/dL Creatinine 0.9 0.5-1.3 mg/dL Glomerular Filtration Rate Calc 100 >90 mL/min Random Glucose 156 70-105 mg/dL Total Calcium 8.8 8.5-10.1 mg/dL Total Bilirubin 0.8 0.2-1.0 mg/dL Direct Bilirubin 0.2 0.0-0.3 mg/dL Aspartate Amino Transf (AST/SGOT) 12 10-37 U/L Alanine Aminotransferase (ALT/SGPT) 37 12-78 U/L Alkaline Phosphatase 75 50-136 U/L Troponin I High Sensitivity < 4 4-75 ng/L Total Protein 7.6 6.0-8.3 g/dL Albumin 4.1 3.5-5.0 g/dL Lipase 36 16-77 U/L Whole Blood Glucose 156 130 70-110 MG/DL Test 02/13/25 05:35 Range/Units White Blood Count 8.0 4.8-10.8 K/uL Red Blood Count 4.75 4.50-6.20 MIL/uL Hemoglobin 15.0 14.0-18.0 g/dL Hematocrit 44.1 42-54 % Mean Corpuscular Volume 92.8 79-99 fL Mean Corpuscular Hemoglobin 31.6 27.0-33.0 pg Mean Corpuscular Hemoglobin Concent 34.0 32.0-36.0 g/dL Red Cell Distribution Width 13.1 11.0-15.5 % Platelet Count 181 130-400 K/uL Mean Platelet Volume 9.2 7.5-10.5 fL Nucleated Red Blood Cells 0.0 0.0-0.19 % Sodium Level 140 136-145 mmol/L Potassium Level 4.0 3.5-5.1 mmol/L Chloride Level 107 101-111 mmol/L Carbon Dioxide Level 25 21-32 mmol/L Blood Urea Nitrogen 22 7-18 mg/dL Creatinine 1.0 0.5-1.3 mg/dL Glomerular Filtration Rate Calc 88 >90 mL/min Random Glucose 129 70-105 mg/dL Total Calcium 7.5 8.5-10.1 mg/dL Assessment/Plan Assessment/Plan ASSESSMENT: DM II UNCONTROLLED WITH HYPERGLYCEMIA DM II W PERIPHERAL POLYNEUROPATHY FATTY LIVER MIXED HYPERLIPIDEMIA GERD LUMBAR DISC DISEASE HYPERTENSIVE HEART AND RENAL DISEASE / CKD 2 CAD HX OF PREVIOUS ISCHEMIC STROKE ALLERGIC RHINITIS BPH HE PRESENTED WITH ACUTE GASTRITIS/ ENTERITIS/ DEHYDRATION/LEUKOCYTOSIS PLAN: STARTED ON IV LEVAQUIN IVF HYDRATION HOLD GLP1 ADJUST ANTI HYPERTENSIVES NEEDED SUPPLEMENT ELECTROLYTES MONITOR GLUCOSE AND COVER WITH INSULIN PRN INCREASE DIET AND ACTIVITY TOLERATED PPI STARTED SUPPORTIVE MEASURES CLARK JOAQUIN MD Feb 13, 2025 08:50
[2025-02-13] MEDS ORDERED: LEVO-70 PO (08:57)
[2025-02-13] MEDS ORDERED: MAG/ALUM/SIMETH 30 ML UDCUP PO PRN (09:00)
[2025-02-13] MEDS ORDERED: LACTULOSE 20 GM/30 ML UDCUP PO PRN (09:00)
[2025-02-13] MEDS: EMPAGLIFLOZIN 25MG TABLET PO SCH (09:00)
[2025-02-13] MEDS ORDERED: NITROGLYCERIN 0.4 MG SL TAB SL SCH (09:00)
[2025-02-13] MEDS ORDERED: PoTASSium chloRIDE 10MEQ SR 10 MEQ/TAB TAB.SR.24H PO PRN (09:00)
[2025-02-13] MEDS ORDERED: PoTASSium chloRIDE 20MEQ ER 20 MEQ ERTAB PO PRN (09:00)
[2025-02-13] MEDS: ASPIRIN 81 MG EC TAB PO SCH (09:00)
[2025-02-13] MEDS: EZETIMIBE 10 MG TAB PO SCH (09:00)
[2025-02-13] MEDS ORDERED: PoTASSium chl 10% ELIXIR 20MEQ 20 MEQ/15 ML UDCUP PO PRN ×2 (09:00)
--- NOTE | 2025-02-13 10:58 | NUR ---
DCP: HOME sw met with pt and Mackenzie Del Valle [phone]. 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 Pt uses no DME, had sleep study for his apnea and got a re furbished machine that never worked. Pt is waiting for new machine. No in home care services, uses [facility] for rx and PCP is Gigi Berrios. pt denies dc needs and will return home at ri Addendum: 02/13/25 at 1104 by JACQUELINE MENDOZA Amended: Links added.
[2025-02-13 11:55] VITALS: BP 123/71; PULSE 68; RESP 18; TEMP 98
--- NOTE | 2025-02-13 14:34 | NUR ---
DISCHARGE PT PIV DC'D PT VERBALIZED UNDERSTANDING OF DISCHARGE INSTRUCTIONS PT HAD NO FURTHER QUESTION AT TIME OF DISCHARGE PT AND GATHERED AND TOOK ALL BELONGINGS.
--- NOTE | 2025-02-14 00:07 | DS ---
DISCHARGE SUMMARY Date of Visit: Feb 14, 2025 Time of Visit: 00:07 ADMISSION DATE: Feb 12, 2025 at 20:55 DISCHARGE DATE: Feb 14, 2025 ATTENDED PHYSICIAN: Krysta Berrios MD DISCHARGE DIAGNOSIS: ACUTE GASTRITIS/ ENTERITIS/ DEHYDRATION/LEUKOCYTOSIS DM II UNCONTROLLED WITH HYPERGLYCEMIA DM II W PERIPHERAL POLYNEUROPATHY FATTY LIVER MIXED HYPERLIPIDEMIA GERD LUMBAR DISC DISEASE HYPERTENSIVE HEART AND RENAL DISEASE / CKD 2 CAD HX OF PREVIOUS ISCHEMIC STROKE ALLERGIC RHINITIS BPH SHIPPING AND RECEIVING SPECIALIST(S): NONE PROCEDURES: NONE RADIOLOGY: CXR FINDINGS: LUNGS:Mild bibasilar airspace disease may reflect atelectasis. Lungs are otherwise clear. PLEURAL SPACES:No evidence of pleural effusion or pneumothorax. MEDIASTINUM:Cardiac size and mediastinal contours within normal limits. BONES:No acute osseous abnormality. IMPRESSION: No acute cardiopulmonary pathology is evident. CT ABDOMEN/PELVIS W/CONTRAST FINDINGS LUNG BASES:The lung bases appear clear. No pleural effusions are seen. LIVER:Enlarged in size measuring 18.5 cm. Few subcentimeter cysts in the right lobe of the liver. GALLBLADDER AND BILE DUCTS: The gallbladder appears within normal limits. No radiopaque gallstones are seen. No biliary ductal dilatation is evident. PANCREAS:Unremarkable. SPLEEN: Unremarkable. ADRENAL GLANDS: Unremarkable. KIDNEYS, URETERS, AND BLADDER: Bilateral perinephric fat stranding. There is no hydronephrosis or hydroureter. No urinary calculi are seen. The bladder is unremarkable. STOMACH AND BOWEL: There is suggestion of mild concentric wall thickening at the distal gastric body and gastric antrum (series 2, image 34). This may be accentuated by underdistention; however, if warranted may be further evaluated with endoscopy. Otherwise, bowel loops are normal in caliber without evidence of obstruction, ileus, or bowel wall thickening. Colonic diverticulosis with no evidence of acute diverticulitis. APPENDIX:No evidence of acute appendicitis on CT examination. PERITONEUM:No free fluid. No free air. LYMPH NODES:No lymphadenopathy is evident. REPRODUCTIVE:Mild prostatomegaly measuring 34 cc. VASCULATURE:No evidence of abdominal aortic aneurysm. Atherosclerotic intimal wall calcifications involving abdominal aorta and its branches. BONES:No aggressive appearing osseous lesion. No acute osseous pathology evident. Mild to moderate lumbar spondylosis Bilateral inguinal measuring 1.6 cm on the right side 1.4 cm on the left side with herniation of omental fat. IMPRESSION: 1. No acute intraabdominal or pelvic pathology. 2. Hepatomegaly measuring 18.5 cm. 3. Bilateral perinephric fat stranding. Recommend correlation with laboratory parameters to exclude renal parenchymal disease. 4. Mild concentric wall thickening at the distal gastric body and antrum, possibly due to underdistention. Clinical correlation is advised, and if warranted endoscopy may be obtained for further evaluation. 5. Bilateral inguinal hernias with omental fat herniation. HOSPITAL COURSE: THIS IS A 59 YR OLD MAN WITH THE ABOVE PMH WHO PRESENTED WITH ACUTE GASTRITIS/ ENTERITIS / DEHYDRATION/LEUKOCYTOSIS. HE WAS HYDRATED, KEPT OFF HIS GLP1, TREATED WITH IV LEVAQUIN, ANALGESICS ANTI EMETICS AND PPI AND IMPROVED BY THE FOLLOWING DAY. HE WAS LATER DISCHARGED IN STABLE CONDITION ONCE ABLE TO TOLERATE HIS DIET ADVANCEMENT AND WAS ASKED TO CONTINUE TO HOLD HIS GLP1 AND COMPLETE HIS ORAL ANTIBIOTIC AN OUTPATIENT. ALCOHOL CESSATION WAS STRONGLY ENCOURAGED DUE TO HIS LIVER DISEASE WELL. DIET: ADA DIET ACTIVITY: AT RENZO CONDITION: STABLE AND BACK TO BASELINE EQUIPMENT: NONE FOLLOW UP APPOINTMENT(S): DR BERRIOS IN 2-5 DAYS DISPOSITION: HOME CODE STATUS: FULL MEDICATION RECONCILIATION : Home Medications were reconciled with hospital medications upon discharge and discussed with patient and/or responsible constitution party. HOLD GLP1 UNTIL FURTHER NOTICE COMPLETE LEVAQUIN 500 MG PO DAILY X 3 DAYS ^ Home Meds Active Scripts Levofloxacin (Levofloxacin) 500 Mg Tablet, 1 TAB PO DAILY for 3 Days, #3 TAB 0 Refills Prov:KRYSTA BERRIOS MD 02/13/25 Nitroglycerin (Nitroglycerin) 0.4 Mg Tab.subl, 1 TAB SL AD for chest pain, #25 TAB 0 Refills 1st sign of attack; may repeat every 5 mins; if pain persists after 3 in 15 min, medical attention is recommended Prov:KRYSTA BERRIOS MD 02/13/25 Gabapentin (Gabapentin) 100 Mg Capsule, 100 MG PO DAILY for 90 Days, #90 CAP Prov:KRYSTA BERRIOS MD 02/13/25 Ezetimibe (Ezetimibe) 10 Mg Tablet, 10 MG PO DAILY for 90 Days, #90 TAB Prov:KRYSTA BERRIOS MD 02/13/25 Aspirin (Aspirin EC) 81 Mg Tablet.dr 81 MG PO DAILY for 90 Days, #90 TAB Prov:KRYSTA BERRIOS MD 02/13/25 Clopidogrel Bisulfate (Clopidogrel) 75 Mg Tablet, 75 MG PO DAILY for 90 Days, #90 TAB Prov:KRYSTA BERRIOS MD 02/13/25 Rosuvastatin Calcium (Rosuvastatin Calcium) 20 Mg Tablet, 20 MG PO DAILY for 90 Days, #90 TAB Prov:KRYSTA BERRIOS MD 02/13/25 Tamsulosin HCl (Flomax) 0.4 Mg Cap.er.24h, 0.4 MG PO HS for 90 Days, #90 CAP Prov:KRYSTA BERRIOS MD 02/13/25 Losartan Potassium (Losartan Potassium) 25 Mg Tablet, 25 MG PO BID, #180 TAB Prov:KRYSTA BERRIOS MD 02/13/25 Empagliflozin (Jardiance) 25 Mg Tablet, 25 MG PO DAILY, #90 TAB 1 Refill Prov:KRYSTA BERRIOS MD 01/15/24 Omeprazole (Omeprazole) 40 Mg Capsule.dr, 40 MG PO DAILY PRN for HEARTBURN, #90 CAP Prov:KRYSTA BERRIOS MD 01/12/24 Reported Medications Glipizide (Glipizide) 10 Mg Tablet, 10 MG PO BID, TAB 01/11/24 Discontinued Scripts Ezetimibe/Rosuvastatin Calcium (Rosuvastatin-Ezetimibe 10-10Mg) 10 Mg-10 Mg Tablet, 1 EACH PO DAILY, #90 TAB 3 Refills Prov:KEANU PINEDA MD 01/15/24 Dulaglutide (Trulicity) 1.5 Mg/0.5 Ml Pen.injctr, 1.5 MG SQ QWEEK for 90 Days, #4 ML Prov:KRYSTA BERRIOS MD 01/12/24 Lidocain/Me-Salicyl/Caps/Menth (Medi-Patch with Lidocaine) 0.5 %-20 %-0.035 %-5 % Adh..patch, 1 EACH TP DAILY for 5 Days, #5 ADH.PATCH Prov:JEOVANNY IYER 10/16/24 Carbamazepine (Carbamazepine ER) 100 Mg Tab.er.12h, 1 TAB PO BID for 30 Days, #1 20 TAB 0 Refills Prov:MAURISIO BERUMEN DO 03/09/24 Gabapentin (Gabapentin) 100 Mg Capsule, 100 MG PO TID, #60 CAP Prov:CHRISTINA MA MD 01/15/24 KRYSTA BERRIOS MD Feb 14, 2025 00:07
== END 2025-02-13 14:45 | disposition home or self-care (01) ==
LOC: EDH 15:33 → EDHIP 20:55 → INTOOBSV 20:55 → 1MS 22:05
PROVIDERS: ADMIT Internal Medicine; ATTEND Internal Medicine
DX: K29.00 Acute gastritis without bleeding (principal); K52.9 Noninfective gastroenteritis and colitis, unspecified; E11.65 Type 2 diabetes mellitus with hyperglycemia; I13.10 Hypertensive heart and chronic kidney disease without heart failure, with stage 1 through stage 4 chronic kidney disease, or unspecified chronic kidney disease; E11.22 Type 2 diabetes mellitus with diabetic chronic kidney disease; N18.2 Chronic kidney disease, stage 2 (mild); K76.0 Fatty (change of) liver, not elsewhere classified; N40.0 Benign prostatic hyperplasia without lower urinary tract symptoms; E11.42 Type 2 diabetes mellitus with diabetic polyneuropathy; E78.2 Mixed hyperlipidemia; I25.10 Atherosclerotic heart disease of native coronary artery without angina pectoris; K21.9 Gastro-esophageal reflux disease without esophagitis; E86.0 Dehydration; Z79.85 Long-term (current) use of injectable non-insulin antidiabetic drugs; Z79.84 Long term (current) use of oral hypoglycemic drugs; Z79.02 Long term (current) use of antithrombotics/antiplatelets; Z86.73 Personal history of transient ischemic attack (TIA), and cerebral infarction without residual deficits; Z88.5 Allergy status to narcotic agent; Z95.5 Presence of coronary angioplasty implant and graft; Z79.899 Other long term (current) drug therapy; Z98.890 Other specified postprocedural states
CPT/HCPCS: 96361 ×3; 96365; 96375 ×2; 99284; 80076; 84484; 80048 ×2; 83690; 85025; 82948 ×3; 81003; 36415 ×2; 71045; 74177; 93005; 85027; G0378 ×18; J1308; J1956; J7030 ×4; J2405; J2765; J1885; Q9967; 96374; 99285

== ENCOUNTER 2025-05-01 16:08 | Emergency (ER) | payer BC ==
[~2025-05-01] VITALS: Ht 175.3 cm; Wt 84.8 kg
[~2025-05-01 16:08] MED LIST changes: -ACET-2079 PO; -ACET-2743 PO; -AEC81 PO; -ALBU90AE IH; +ASPI-1443 PO; -BROM118S48 PO; -CARB100T61 PO; +CLOP75TA32 PO; -DULA1.5P SQ; -EZET-86 PO; +EZET10TA80 PO; -FLUT9.9S NS; -LIDO1ADH6 TP; -MELO-108 PO; -METO-408 PO; +NITR0.4T50 SL; -PRAS10TA9 PO; +ROSU20TA98 PO; +TAMS-55 PO
--- NOTE | 2025-05-01 16:40 | ERN ---
ED Note History of Present Illness Stated Complaint: SOB, ARM PAIN, BACK PAIN Chief Complaint: Multiple Complaints Time Seen by MD: 16:23 Dictation: PATIENT IS A 59-YEAR-OLD MALE COMING IN TODAY WITH A MULTIPLE COMPLAINTS TO INCLUDE BILATERAL FLANK PAIN/BACK PAIN ONSET 2-3 DAYS PRIOR TO ARRIVAL. NO CHANGE IN URINATION NO FEVER NO CHILLS NO ALSO COMPLAINING OF NAUSEA WITH ABDOMINAL CRAMPING STATES HE IS HAVING BILATERAL SHOULDER PAIN. HE DENIES ANY SUBSTERNAL CHEST PAIN BACK PAIN NO ARM PAIN NO JAW PAIN. HE STATES HE HAS TAKEN NOTHING PRIOR TO ARRIVAL FOR THESE PAINS Allergies: Coded Allergies: morphine (Verified Allergy, Unknown, 09/17/17) Home Meds Active Scripts Levofloxacin (Levofloxacin) 500 Mg Tablet, 1 TAB PO DAILY for 3 Days, #3 TAB 0 Refills Prov:CLARK JOAQUIN MD 02/13/25 Nitroglycerin (Nitroglycerin) 0.4 Mg Tab.subl, 1 TAB SL AD for chest pain, #25 TAB 0 Refills 1st sign of attack; may repeat every 5 mins; if pain persists after 3 in 15 min, medical attention is recommended Prov:CLARK JOAQUIN MD 02/13/25 Gabapentin (Gabapentin) 100 Mg Capsule, 100 MG PO DAILY for 90 Days, #90 CAP Prov:CLARK JOAQUIN MD 02/13/25 Ezetimibe (Ezetimibe) 10 Mg Tablet, 10 MG PO DAILY for 90 Days, #90 TAB Prov:CLARK JOAQUIN MD 02/13/25 Aspirin (Aspirin EC) 81 Mg Tablet.dr, 81 MG PO DAILY for 90 Days, #90 TAB Prov:CLARK JOAQUIN MD 02/13/25 Clopidogrel Bisulfate (Clopidogrel) 75 Mg Tablet, 75 MG PO DAILY for 90 Days, #90 TAB Prov:CLARK JOAQUIN MD 02/13/25 Rosuvastatin Calcium (Rosuvastatin Calcium) 20 Mg Tablet, 20 MG PO DAILY for 90 Days, #90 TAB Prov:CLARK JOAQUIN MD 02/13/25 Tamsulosin HCl (Flomax) 0.4 Mg Cap.er.24h, 0.4 MG PO HS for 90 Days, #90 CAP Prov:CLARK JOAQUIN MD 02/13/25 Losartan Potassium (Losartan Potassium) 25 Mg Tablet, 25 MG PO BID, #180 TAB Prov:CLARK JOAQUIN MD 02/13/25 Empagliflozin (Jardiance) 25 Mg Tablet, 25 MG PO DAILY, #90 TAB 1 Refill Prov:CLARK JOAQUIN MD 01/15/24 Omeprazole (Omeprazole) 40 Mg Capsule.dr, 40 MG PO DAILY PRN for HEARTBURN, #90 CAP Prov:CLARK JOAQUIN MD 01/12/24 Reported Medications Glipizide (Glipizide) 10 Mg Tablet, 10 MG PO BID, TAB 01/11/24 Past Medical History Past Medical History: CAD, Diabetes-Type II, High Cholesterol, Heart Disease, Hypertension, MT, Stroke Additional Past Medical Hx: CARDIAC STENTS ON ANTICOAGULANTS Surgical History: None Surgical History Other: CARDIAC CATHETERIZATION RN Note Reviewed/Agreed w/PFSH: Yes Review of System Dictation CONSTITUTIONAL: NEGATIVE EXCEPT FOR HPI GB W HEAD/FACE: NEGATIVE EXCEPT FOR HPI EENT: NEGATIVE EXCEPT FOR HPI RESPIRATORY: NEGATIVE EXCEPT FOR HPI GASTROINTESTINAL/ABDOMINAL: NEGATIVE EXCEPT FOR HPI GENITOURINARY: NEGATIVE EXCEPT FOR HPI MUSCULOSKELETAL: NEGATIVE EXCEPT FOR HPI BACK PAIN INTEGUMENTARY: NEGATIVE EXCEPT FOR HPI NEUROLOGICAL/PSYCH: NEGATIVE EXCEPT FOR HPI HEMATOLOGIC/LYMPHATIC: NEGATIVE EXCEPT FOR HPI ALL SYSTEMS NEGATIVE, EXCEPT NOTED ABOVE. 13 POINT REVIEW OF SYSTEMS ASSESSED AND ALL NEGATIVE EXCEPT FOR ABOVE. Initial Vital Sign VS Vital Signs Date Time Temp Pulse Resp B/P (MAP) Pulse Ox O2 Delivery O2 Flow Rate FiO2 05/01/25 16:14 98.8 115 16 129/79 97 Room Air 0 05/01/25 18:47 21 Physical Exam Dictation VITAL SIGNS REVIEWED GENERAL APPEARANCE: ALERT, ORIENTED X 3, MILD ACUTE DISTRESS, WELL DEVELOPED, NOURISHED. HEAD AND FACE: NON-TRAUMATIC. EYES: PERRL, PINK CONJUNCTIVAS, EYELID NO TRAUMA, ANTERIOR CHAMBER WITH ARCUS SENILIS. EARS: PINNAS INTACT AND NO SIGNS OF TRAUMA OR ERYTHEMA EAR CANALS CLEAR AND NO DISCHARGE TM NO ERYTHEMA NOSE: NO DISCHARGE, NO BLEEDING. OROPHARYNX: MOUTH NORMAL, TONGUE PINK, PHARYNX CLEAR,NO ERYTHEMA, TONSILS NO EXUDATES, NO ABSCESSES NOTED, MUCOUS MEMBRANE MOIST NECK: SUPPLE, NON-TENDER, NO THYROMEGALY, NO MASSES, NO JVD, NO BRUITS BREAST:DEFERRED CHEST:NO TENDERNESS, NO CREPITUS, NO PARADOXICAL MOVEMENT, NO RETRACTIONS LUNGS:CLEAR, WELL-VENTILATED, SYMMETRIC, NO RALES, NO WHEEZING, NO RHONCHI, NO STRIDOR, GOOD BREATH SOUNDS BILATERALLY HEART: REGULAR RATE, REGULAR RHYTHM, NO MURMUR, NO GALLOPS VASCULAR: NO PERIPHERAL EDEMA, ABDOMEN: SOFT, POSITIVE BOWEL SOUNDS, NONDISTENDED, NO GUARDING, NONTENDER, NO REBOUND, NO MASSES NO HEPATOMEGALY, NO SPLENOMEGALY, NO TELLEZ'S SIGN, NO HERNIAS. RECTAL: DEFERRED GENITAL: DEFERRED NEUROLOGICAL: NORMAL SPEECH, MOTOR FUNCTION INTACT, SENSORY FUNCTION INTACT MUSCULOSKELETAL: NECK NONTENDER, FULL RANGE OF MOTION, BACK NONTENDER, FULL RANGE OF MOTION, EXTREMITIES: NONTENDER, FULL RANGE OF MOTION SKIN: COLOR PINK, DRY, NO TURGOR, NO RASH, NO LACERATIONS, NO ABRASIONS, NO CONTUSIONS. LYMPHATIC: DEFERRED Results (Laboratory/Radiology) Laboratory/Radiology Laboratory Tests Test 05/01/25 16:58 05/01/25 17:21 05/01/25 19:26 White Blood Count 14.6 K/uL (4.8-10.8) H Red Blood Count 5.55 MIL/uL (4.50-6.20) Hemoglobin 17.3 g/dL (14.0-18.0) Hematocrit 50.2 % (42-54) Mean Corpuscular Volume 90.5 fL (79-99) Mean Corpuscular Hemoglobin 31.2 pg (27.0-33.0) Mean Corpuscular Hemoglobin Concent 34.5 g/dL (32.0-36.0) Red Cell Distribution Width 12.7 % (11.0-15.5) Platelet Count 207 K/uL (130-400) Mean Platelet Volume 9.4 fL (7.5-10.5) Immature Granulocyte % (Auto) 0.5 % (0-1) Neutrophils (%) (Auto) 90.7 % (40.0-77.0) H Lymphocytes (%) (Auto) 3.8 % (21.0-51.0) L Monocytes (%) (Auto) 3.9 % (3.0-13.0) Eosinophils (%) (Auto) 0.8 % (0.0-8.0) Basophils (%) (Auto) 0.3 % (0.0-5.0) Neutrophils # (Auto) 13.2 K/uL (1.8-7.7) H Lymphocytes # (Auto) 0.6 K/uL (1.0-4.8) L Monocytes # (Auto) 0.6 K/uL (0.1-1.0) Eosinophils # (Auto) 0.12 K/uL (0.00-0.70) Basophils # (Auto) 0.04 K/uL (0.00-0.20) Absolute Immature Granulocyte (auto 0.08 K/uL (0-1) Nucleated Red Blood Cells 0.0 % (0.0-0.19) White Cell Morphology Comment See comments Sodium Level 137 mmol/L (136-145) Potassium Level 4.2 mmol/L (3.5-5.1) Chloride Level 102 mmol/L (101-111) Carbon Dioxide Level 25 mmol/L (21-32) Blood Urea Nitrogen 22 mg/dL (7-18) H Creatinine 1.2 mg/dL (0.5-1.3) Glomerular Filtration Rate Calc 71 mL/min (>90) Random Glucose 173 mg/dL (70-105) H Total Calcium 8.4 mg/dL (8.5-10.1) L Troponin I High Sensitivity 6 ng/L (4-75) Lipase 42 U/L (16-77) Urine Color LIGHT-YELLOW (YELLOW) Urine Appearance CLEAR (CLEAR) Urine pH 5.0 (5.0-8.0) Urine Specific [place] 1.036 (1.001-1.031) Urine Protein NEGATIVE mg/dL (NEGATIVE) Urine Glucose (UA) >=1000 mg/dL (NEGATIVE) H Urine Ketones 40 mg/dL (NEGATIVE) H Urine Occult Blood +- (TRACE) (NEGATIVE) H Urine Nitrate NEGATIVE (NEGATIVE) Urine Bilirubin NEGATIVE mg/dL (NEGATIVE) Urine Urobilinogen 0.2 mg/dL (0.2-1.0) Urine Leukocyte Esterase NEGATIVE Jaqueline/uL Urine RBC 0-1 /HPF (0-1) Urine WBC 0-1 /HPF (0-1) Urine Bacteria None /HPF (None Seen) Influenza Type A Antigen Negative For Type A Influenza Type B Antigen Negative For Type B SARS-CoV-2, RNA, NAAT NEGATIVE SARS CoV-2 Group A Streptococcus Rapid negative (NEGATIVE) Labs Reviewed?: Yes EKG Comment: EKG SINUS TACHYCARDIA/HEART RATE 102/AXIS NORMAL/NONSPECIFIC CHANGES TO LEADS TWO AND THREE ED Course ED Course Orders Procedure Category Date Status Time 12 Lead Ekg Tracing- EKG 05/01/25 Logged Technical 16:17 Cbc With Differential LAB 05/01/25 Complete 16:38 Troponin I High LAB 05/01/25 Complete Sensitivity 16:38 Urinalysis Profile LAB 05/01/25 Complete 16:38 Lipase LAB 05/01/25 Complete 16:38 Basic Metabolic Panel LAB 05/01/25 Complete 16:38 Chest 1vw RAD 05/01/25 Taken 16:40 Covid Rna Naat LAB 05/01/25 Complete 19:23 Influenza Type A & B, LAB 05/01/25 Complete Rapid 19:23 Rapid (Group A Strep) LAB 05/01/25 Complete 19:23 Ibuprofen 800 Mg Tab PHA 05/01/25 In Process (Motrin) 20:30 Current Medications Medications (Trade) Dose Ordered Sig/Shanti Route PRN Reason Start Time Stop Time Status Last Admin Dose Admin Ibuprofen (moTRIN) 800 mg ONCE ONCE PO 05/01/25 20:30 05/01/25 20:31 Vital Signs Date Time Temp Pulse Resp B/P (MAP) Pulse Ox O2 Delivery O2 Flow Rate FiO2 05/01/25 19:21 99.3 104 18 140/87 97 Room Air* 0 05/01/25 18:47 98.2 95 20 128/82 95 Room Air* 0 05/01/25 16:14 98.8 115 16 129/79 97 Room Air 0 2024/PATIENT IS SIGNED OUT AGAINST MEDICAL ADVICE BEFORE FOR WAITING ALL THE RESULTS. HEART Score Response (Comments) Value EKG: Repolarization changes 1 Age: 45-65yrs (+1) 1 Risk Factors: 1-2 risk factors (+1) 1 Initial Troponin: Normal limit (0) 0 Total 3 Medical Decision Making MDM MDM: DIFFERENTIAL DIAGNOSIS: ACS/AMI/FLU/COVID/STREP/ELECTROLYTE IMBALANCE/DEHYDRATION/PNEUMONIA/BRONCHITIS RATIONALE: TESTS CONSIDERED AND ORDERED SECONDARY TO SHARED DECISION MAKING INCLUDE: EKG/LABS/RADIOLOGY PREVIOUS OUTSIDE RECORDS REVIEWED: OLD ER VISITS. RISK OF COMPLICATION AND/OR MORBIDITY OR MORTALITY OF PATIENT MANAGEMENT: NONE MEDICATIONS-PER MEDICATION RECONCILIATION NEED FOR HOSPITALIZATION: PATIENT DOES NOT MEET CRITERIA FOR HOSPITALIZATION. NONE NEED FOR EMERGENCY MAJOR/MINOR SURGERY: NO THERE ARE NO SOCIAL CONCERNS WITH THIS PATIENT. PRESCRIPTION DRUG MANAGEMENT NO PRESCRIPTIONS WILL INCLUDE SYMPTOMATIC CARE PATIENT'S PRIOR EXTERNAL MEDICAL RECORDS FROM OTHER ER VISITS WERE REVIEWED BY ME INDICATED. PRIOR TESTING AND RESULTS FROM PREVIOUS VISITS WERE REVIEWED. PRIOR TESTS WERE TAKEN INTO ACCOUNT WITH MEDICAL DECISION MAKING AND RESOURCE UTILIZATION, INDEPENDENT HISTORIAN/HISTORIANS WERE USED TO OBTAIN COMPLETE MEDICAL HISTORY. I INDEPENDENTLY INTERPRETED THE TEST THAT WERE PERFORMED, RESULTS WERE REVIEWED BY ME AND CONSIDERED FINDINGS ON RADIOLOGY IF ORDERED. MEDICAL MANAGEMENT AND EXAMINATION INTERPRETATION DISCUSSIONS WERE HAD BY ME WITH OTHER QUALIFIED HEALTHCARE PROFESSIONALS INDICATED FOR THE PATIENT'S CARE. DX & DISP Disposition: AMA Departure Impression: Primary Impression: Leukocytosis Additional Impressions: Uncontrolled diabetes mellitus, Hypocalcemia, Arthralgia Condition: Stable Referrals: CLARK JOAQUIN MD (PCP) I have reviewed the case, and I agree with, Diagnosis and Plan SHARMIN CROWELL [facility] May 01, 2025 16:40
[2025-05-01 17:11] LABS: IMMATURE GRANULOCYTE ABSOLUTE 0.08 K/uL (0-1); NUCLEATED RED BLOOD CELLS 0.0 % (0.0-0.19); PLATELET COUNT (AUTO) 207 K/uL (130-400); RED BLOOD CELL COUNT(AUTO) 5.55 MIL/uL (4.50-6.20); RED CELL DISTRIBUTION WIDTH 12.7 % (11.0-15.5); WHITE BLOOD COUNT (AUTO) 14.6 K/uL (4.8-10.8)
[2025-05-01 17:20] LABS: CREATININE 1.2 mg/dL (0.5-1.3); GLOMERULAR FILTR. RATE CALC 71.0 mL/min (>90); GLUCOSE,RANDOM 173.0 mg/dL (70-105); SODIUM SERUM 137.0 mmol/L (136-145); UREA NITROGEN, BLOOD 22.0 mg/dL (7-18)
[2025-05-01 17:33] LABS: ADD UA MICROSCOPIC YES; APPEARANCE,URINE CLEAR (CLEAR); GLUCOSE, URINE (UA) >=1000 mg/dL (NEGATIVE); LEUKOCYTE ESTERASE ,URINE NEGATIVE Leu/uL (NEGATIVE); NITRATE,URINE NEGATIVE (NEGATIVE); OCCULT BLOOD,URINE +- (TRACE) (NEGATIVE)
[2025-05-01 19:21] VITALS: BP 140/87; PULSE 104; RESP 18; TEMP 99.4; O2SAT 97
[2025-05-01 19:48] LABS: RAPID GROUP A STREP negative (NEGATIVE)
[2025-05-01 19:50] LABS: SARS-CoV-2, RNA, NAAT NEGATIVE SARS CoV-2 (NEGATIVE)
[2025-05-01 20:19] LABS: INFLUENZA TYPE A Negative For Type A (NEGATIVE); INFLUENZA TYPE B Negative For Type B (NEGATIVE)
--- NOTE | 2025-05-01 20:24 | NUR ---
PATIENT STATED HE WILL BE LEAVING AGAINST MEDICAL ADVICE, STATED HE WAS "TIRED OF WAITING FOR RESULTS". PATIENT REFUSED PAIN MED AT THIS TIME. PATIENT WAS EDUCATED ON AND VERBALIZED UNDERSTANDING ABOUT THE RISKS AND CONSEQUENCES INVOLVED IN LEAVING THE HOSPITAL AT THIS TIME, THE BENEFITS OF CONTINUED TREATMENT. 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 PATIENT WAS ADVICED TO SEEK EMERGENCY HELP IF NEEDED, AND TO FOLLOW UP WITH PCP.
--- NOTE | 2025-05-01 21:30 | HMCIMG ---
EXAM: CR Chest, 1 view CLINICAL HISTORY: Chest pain. COMPARISON: Chest radiograph dated 02/12/2025. FINDINGS: The lungs show no infiltrates or other acute findings. No pleural effusion or pneumothorax. The cardiomediastinal silhouette is within normal limits. No acute osseous abnormality. IMPRESSION: No acute cardiopulmonary process is evident. Compared to the prior study, there is no significant interval change. /[place]
--- NOTE | 2025-05-02 07:11 | EKG ---
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
== END 2025-05-01 20:29 | disposition left against medical advice (07) ==
LOC: EDH 16:08
DX: D72.829 Elevated white blood cell count, unspecified (principal); E11.65 Type 2 diabetes mellitus with hyperglycemia; E83.51 Hypocalcemia; R10.A3 Flank pain, bilateral; M54.9 Dorsalgia, unspecified; R11.0 Nausea; I11.9 Hypertensive heart disease without heart failure; E78.00 Pure hypercholesterolemia, unspecified; I25.10 Atherosclerotic heart disease of native coronary artery without angina pectoris; I25.2 Old myocardial infarction; Z88.5 Allergy status to narcotic agent; Z79.84 Long term (current) use of oral hypoglycemic drugs; Z79.82 Long term (current) use of aspirin; Z79.02 Long term (current) use of antithrombotics/antiplatelets; Z79.899 Other long term (current) drug therapy; Z86.73 Personal history of transient ischemic attack (TIA), and cerebral infarction without residual deficits; Z95.5 Presence of coronary angioplasty implant and graft; Z20.822 Contact with and (suspected) exposure to COVID-19
CPT/HCPCS: 36415; 71045; 80048; 81001; 83690; 84484; 85025; 87635; 87804; 87880; 93005; 99284